=== PATIENT | male | born 1950 | race Caucasian/White ===

== ENCOUNTER 2016-12-21 20:25 | Inpatient (IN) | payer MEDICARE, OTHER ==
[~2016-12-21] VITALS: Ht 188 cm; Wt 72.5 kg
[~2016-12-21 20:25] MED LIST: CYMB60CA PO; FLUC200T2 PO; LEVO.075 PO; NYST100010 SWISH-SWAL; RISP1SOL15 PO; XANA2TAB2 PO
[2016-12-21 20:38] VITALS: BP 147/67; PULSE 100; RESP 18; O2SAT 100; O2SAT 97
[2016-12-21 20:46] VITALS: BP 147/67; PULSE 100; RESP 18; TEMP 98; O2SAT 100
--- NOTE | 2016-12-21 20:47 | PD ---
HPI Chief Complaint: Fall Time Seen by Provider: 20:47 Travel History International Travel<30 days: No Contact w/Intl Traveler<30days: No Traveled to known affect area: No History of Present Illness HPI 66-year-old male with history of dementia arrives to the emergency Department via transfer from [place]. Patient is known to have an oblique fracture to the right hip and upper femur. Patient was accepted by Dr. Hwang the hospitalist, and Dr. Roach the orthopedic on-call. Patient is said to have fallen while transferring to the commode causing a fracture to the right hip. Patient was seen originally at [facility]. Patient states no other injury currently. His pain is 8 out of 10 in the right hip. He has no known drug allergies. PFSH Past Medical History Anxiety: Yes Cancer: No Cardiovascular Problems: No Diabetes: No Genitourinary: No Hepatitis: No Hiatal Hernia: No Hypertension: Yes Musculoskeletal: No Neurologic: No Reproductive: No Respiratory: No Thyroid Disease: Yes Past Surgical History Abdominal Surgery: No Cardiac Surgery: No Ear Surgery: No Endocrine Surgery: No Eye Surgery: No Genitourinary Surgery: No Gynecologic Surgery: No Oral Surgery: No Pacemaker: No Thoracic Surgery: No Other Surgery: Yes Social History Alcohol Use: No Tobacco Use: No Substance Use: Yes (MARIJUANA) Allergies-Medications (Allergen,Severity, Reaction): Coded Allergies: No Known Allergies (Unverified , 12/21/16) Reported Meds & Prescriptions Reported Meds & Active Scripts Active Review of Systems ROS Limitations: Poor Historian, Other: (dementia.) Except as stated in HPI: all other systems reviewed are Neg General / Constitutional: No: Fever Eyes: No: Visual changes HENT: No: Headaches Cardiovascular: No: Chest Pain or Discomfort Respiratory: No: Shortness of Breath Gastrointestinal: No: Abdominal Pain Genitourinary: No: Dysuria Musculoskeletal: No: Pain Skin: No Rash Neurologic: No: Weakness Psychiatric: No: Depression Endocrine: No: Polydipsia Hematologic/Lymphatic: No: Easy Bruising Physical Exam Narrative GENERAL: Patient appears in no acute distress. SKIN: Warm and dry. Normal color. Normal turgor. HEAD: Atraumatic. Normocephalic. EYES: Pupils equal and round. No scleral icterus. No injection or drainage. ENT: No nasal bleeding or discharge. Mucous membranes pink and moist. Pharynx is clear. Airway is patent. NECK: Trachea midline. Supple and nontender. CARDIOVASCULAR: Regular rate and rhythm. RESPIRATORY: No accessory muscle use. Clear to auscultation. Breath sounds equal bilaterally. GASTROINTESTINAL: Abdomen soft, non-tender, nondistended. Hepatic and splenic margins not palpable. MUSCULOSKELETAL: Extremities without clubbing, cyanosis, or edema. No obvious deformities. Patient has external rotation and shortening of the right lower extremity. Patient is able to wiggle his toes on the right foot, and has normal neurovascular exam at this time NEUROLOGICAL: Awake and alert. No obvious cranial nerve deficits. Motor grossly within normal limits. Normal speech. PSYCHIATRIC: Appropriate mood and affect; insight and judgment normal. Data Data Last Documented VS Vital Signs Date Time Temp Pulse Resp B/P Pulse Ox O2 Delivery O2 Flow Rate FiO2 12/21/16 20:46 98.0 100 18 147/67 100 Room Air Orders Femur (Ap & Lat/2vws) (12/21/16 20:53) Hip, Uni(Ap&Lat) Wo Ap Pelvis (12/21/16 20:53) Ice/Cold Pack (12/21/16 20:53) Complete Blood Count With Diff (12/21/16 20:53) Comprehensive Metabolic Panel (12/21/16 20:53) Prothrombin Time / Inr (Pt) (12/21/16 20:53) Act Partial Throm Time (Ptt) (12/21/16 20:53) Iv Access Insert/Monitor (12/21/16 20:53) Ecg Monitoring (12/21/16 20:53) Oximetry (12/21/16 20:53) Sodium Chloride 0.9% Flush (Ns Flush) (12/21/16 21:00) Electrocardiogram (12/21/16 20:53) Chest, Single Ap (12/21/16 20:53) Hydromorphone Pf Inj (Dilaudid Pf Inj) (12/21/16 21:00) Urinary Catheter Insert/Apply (12/21/16 21:02) Admit Order (Ed Use Only) (12/21/16 22:17) Consult Orthopedic (12/21/16 ) Labs Laboratory Tests Test 12/21/16 21:35 White Blood Count 13.7 TH/MM3 Red Blood Count 3.67 MIL/MM3 Hemoglobin 10.3 GM/DL Hematocrit 32.2 % Mean Corpuscular Volume 87.7 FL Mean Corpuscular Hemoglobin 28.0 PG Mean Corpuscular Hemoglobin 32.0 % Concent Red Cell Distribution Width 13.9 % Platelet Count 185 TH/MM3 Mean Platelet Volume 8.0 FL Neutrophils (%) (Auto) 86.4 % Lymphocytes (%) (Auto) 6.1 % Monocytes (%) (Auto) 6.9 % Eosinophils (%) (Auto) 0.0 % Basophils (%) (Auto) 0.6 % Neutrophils # (Auto) 11.8 TH/MM3 Lymphocytes # (Auto) 0.8 TH/MM3 Monocytes # (Auto) 0.9 TH/MM3 Eosinophils # (Auto) 0.0 TH/MM3 Basophils # (Auto) 0.1 TH/MM3 CBC Comment DIFF FINAL Differential Comment MDM Medical Decision Making Medical Screen Exam Complete: Yes Emergency Medical Condition: Yes Medical Record Reviewed: Yes Differential Diagnosis Fall. Right hip fracture with previous hardware in place. Dementia. Narrative Course Patient is medically stable at time of exam. Repeat labs are drawn including CBC, CMP, as well as EKG and chest x-ray. Repeat x-rays of the right hip and femur are ordered. IV is in place and patient is given 1 mg hydromorphone IV. EKG shows sinus tachycardia without significant ST-T changes Call was placed to Dr. Roach, and the patient was discussed. He would like the patient admitted nothing by mouth after midnight. Call was placed to Dr. Cotto, who agreed to admit the patient Diagnosis Primary Impression: Closed fracture of right hip requiring operative repair Qualified Code: S72.001A - Closed fracture of right hip requiring operative repair, initial encounter Additional Impression: Dementia Qualified Code: F03.90 - Dementia without behavioral disturbance, unspecified dementia type Admitting Information Admitting Physician Requests: Observation Scripts Unable to Obtain Active Prescriptions or Reported Meds Condition: Stable Gerardo Huntley December 21, 2016 20:47
[2016-12-21] MEDS ORDERED: SODIUM CHLORIDE 0.9% FLUSH 10 ML FLUSH IV FLUSH PRN ×2 (21:00→23:00)
[2016-12-21] MEDS ORDERED: HYDROmorphone HCL PF 1 MG/ML VIAL IVS ONE (21:00)
--- NOTE | 2016-12-21 21:33 | RADRPT ---
EXAM DATE/TIME: 12/21/2016 21:07 [facility] COMPARISON: CHEST SINGLE AP, April 26, 2016, 4:34. INDICATIONS : Fall, chest pain. MEDICAL HISTORY : None. SURGICAL HISTORY : Right total hip ENCOUNTER: Initial ACUITY: 1 day PAIN SCORE: 2/10 LOCATION: Bilateral chest FINDINGS: A single view of the chest demonstrates the lungs to be symmetrically aerated without evidence of mas s, infiltrate or effusion. The cardiomediastinal contours are unremarkable. Osseous structures are intact. CONCLUSION: No acute disease. Wenceslao Nolasco Jr., MD on December 21, 2016 at 21:31 Board Certified Radiologist. This report was verified electronically.
--- NOTE | 2016-12-21 21:35 | RADRPT ---
EXAM DATE/TIME: 12/21/2016 21:09 [facility] COMPARISON: No previous studies available for comparison. INDICATIONS : Fall, complains of right hip pain. MEDICAL HISTORY : None. SURGICAL HISTORY : Right total hip ENCOUNTER: Initial ACUITY: 1 day PAIN SCORE: 9/10 LOCATION: Right femur FINDINGS: 5 images of the right femur show a right total hip arthroplasty. There is an acute spiral fracture as sociated with the intramedullary component of the arthroplasty. 2 large fragments are seen one of whi ch involves the majority of the lesser catheter and proximal diaphysis while the second involves the greater trochanter and proximal diaphysis. There is some diastases of the fracture fragments measurin g up to 1.5 cm. The femoral head component remains within the acetabular component. Diffuse osteopeni a noted. Osteoarthritis of the knee joint. Soft tissues are unremarkable. CONCLUSION: Acute fracture associated with the intramedullary component of the prosthesis as detailed above. Wenceslao Nolasco Jr., MD on December 21, 2016 at 21:31 Board Certified Radiologist. This report was verified electronically.
--- NOTE | 2016-12-21 21:36 | RADRPT ---
EXAM DATE/TIME: 12/21/2016 21:09 [facility] COMPARISON: No previous studies available for comparison. INDICATIONS : Fall, complains of right hip pain. MEDICAL HISTORY : None. SURGICAL HISTORY : Right total hip ENCOUNTER: Initial ACUITY: 1 day PAIN SCORE: 9/10 LOCATION: Right hip FINDINGS: 3 views of the right hip reveal a total hip arthroplasty. A comminuted spiral-type fracture is seen i nvolving the intramedullary component of the prosthesis. There is up to 1.5 cm of separation of the f racture fragments. The femoral head component remains within the acetabular component. Diffuse osteop enia. CONCLUSION: Acute fracture associated with the intramedullary component of the hip prosthesis as detailed above. Wenceslao Nolasco Jr., MD on December 21, 2016 at 21:33 Board Certified Radiologist. This report was verified electronically.
[2016-12-21 22:09] LABS: AUTOMATED NEUTROPHIL # 11.8 TH/MM3 (1.8-7.7); BASOPHIL # 0.1 TH/MM3 (0-0.2); BASOPHIL % 0.6 % (0.0-2.0); HEMATOCRIT 32.2 % (39.0-51.0); HEMO FLAGS DIFF FINAL; LYMPH % 6.1 % (9.0-44.0); LYMPHOCYTE # 0.8 TH/MM3 (1.0-4.8); MEAN CELL VOLUME 87.7 FL (80.0-100.0); MONO % 6.9 % (0.0-8.0); NEUT % 86.4 % (16.0-70.0); PLATELET COUNT 185 TH/MM3 (150-450); RED BLOOD COUNT 3.67 MIL/MM3 (4.50-5.90); RED CELL DISTRIBUTION WIDTH 13.9 % (11.6-17.2); WHITE BLOOD COUNT 13.7 TH/MM3 (4.0-11.0)
[2016-12-21 22:24] LABS: ANION GAP 10 MEQ/L (5-15); AST (GOT) 12 U/L (15-37); BICARBONATE 24.8 MEQ/L (21.0-32.0); BLOOD UREA NITROGEN 13 MG/DL (7-18); CHLORIDE 104 MEQ/L (98-107); GLOMERULAR FILTRATION RATE 146 ML/MIN (>89); POTASSIUM 3.7 MEQ/L (3.5-5.1); SODIUM (NA) 139 MEQ/L (136-145)
[2016-12-21 22:25] LABS: ALT (GPT) 15 U/L (12-78)
[2016-12-21 22:27] LABS: ALKALINE PHOSPHATASE 58 U/L (45-117); TOTAL BILIRUBIN ADULT 0.7 MG/DL (0.2-1.0)
[2016-12-21 22:28] LABS: APTT (PATIENT) 26.3 SEC (24.3-30.1); PROTHROMBIN TIME - PATIENT 10.7 SEC (9.8-11.6)
[2016-12-21] MEDS ORDERED: NALOXONE HCL 0.4 MG/ML AMP IV PRN (23:00)
[2016-12-21] MEDS ORDERED: HYDROmorphone HCL PF 1 MG/ML VIAL IV PUSH PRN (23:00)
[2016-12-21 23:19] VITALS: BP 154/64; PULSE 102; RESP 18; O2SAT 99
[2016-12-22 00:50] VITALS: PULSE 112; O2SAT 100
[2016-12-22] MEDS ORDERED: POVIDONE IODINE 5% (ANTISEPSIS KIT) 4 APPLICATIONS EACH NARE PRN (01:00)
[2016-12-22] MEDS ORDERED: CHLORHEXIDINE GLUCONATE 2 % 1 PACK (2 CLOTHS) TOPICAL PRN (01:00)
[2016-12-22] MEDS ORDERED: LACTATED RINGER'S 1000 ML IV PRN (01:00)
[2016-12-22] MEDS ORDERED: METOPROLOL TARTRATE 25 MG TAB PO PRN (01:00)
[2016-12-22] MEDS ORDERED: SODIUM CHLORID 0.9% 500 ML IV PRN (01:00)
[2016-12-22] MEDS ORDERED: INSULIN HUMAN REGULAR 1,000 UNITS/10 ML VIAL SQ PRN (01:00)
[2016-12-22] MEDS ORDERED: HYDROmorphone HCL PF 1 MG/ML VIAL IV PUSH PRN (02:00)
--- NOTE | 2016-12-22 02:03 | HHI.HP ---
[facility] Unknown Admission Diagnosis Right hip Fracture Diagnoses: Travel History International Travel<30 Days: No Contact w/Intl Traveler <30 Da: No Traveled to Known Affected Are: No History of Present Illness History from transfer notes from [facility]. Patient was transferred from [facility] last night for orthopedics evaluation and repair of his right hip fracture. Patient had an unwitnessed fall on December 21, 2016. It was thought to be a trip and fall at home. Apart from the above, history is quite limited because patient has baseline dementia and the notes from [facility] only mentioned that patient had a fall. No further collateral information is available at this time regarding the circumstances of his fall. Further imaging studies done at [facility] reveals obliquely oriented fracture of the proximal shaft of the right femur with minimal angulation and destruction of fracture fragments extending around the stem of the right hip hemiarthroplasty. Patient's CT imaging of the head revealed no acute abnormalities. However does have significant substance loss which is greater than expected of his age. Left sphenoid sinusitis and right mid ethmoid air cell opacification. His lab work done there reviewed. At the time of my exam, patient is quite agitated and is severely in pain. He was initially doing well in the emergency room and upon initial arrival to medical floor. However as he moved to the bed, he suffered from severe pain and subsequently he was quite agitated and screaming and yelling out trying to pull his Hernandez catheter. Upon further questioning of his medical conditions, he pretty much answered yes to all the questioning. Review of Systems ROS Limitations: Altered Mental Status, Poor Historian (poor historian, dementia, not able to provide ros at all) Past Family Social History Past Medical History Per EMR: Anxiety History of polysubstance abuse previouslywith marijuana, oxycodone, Xanax Hypertension Hypothyroidism Normocytic anemia History of oral thrush Past Surgical History Right total hip arthroplasty History of fractured right knee Allergies: Coded Allergies: No Known Allergies (Unverified , 12/21/16) Family History Unknown. Patient is not able to provide. Social History Marijuana use per previous history. Denies any IV drug abuse or alcohol abuse previously. Physical Exam Vital Signs Vital Signs Date Time Temp Pulse Resp B/P Pulse Ox O2 Delivery O2 Flow Rate FiO2 12/21/16 23:19 102 18 154/64 99 Room Air 12/21/16 20:46 98.0 100 18 147/67 100 Room Air 12/21/16 20:38 18 97 Room Air 12/21/16 20:38 100 18 147/67 100 Physical Exam GENERAL: This is a gentleman, in acute distress from pain and anxiety SKIN: No rashes, ecchymoses or lesions. Cool and dry. HEAD: Atraumatic. Normocephalic. No temporal or scalp tenderness. EYES:No scleral icterus. No injection or drainage. ENT: Nose without bleeding, purulent drainage or septal hematoma. Airway patent. NECK: Trachea midline. No JVD. Supple, nontender, no meningeal signs. CARDIOVASCULAR: Tachycardic due to pain and anxiety. No murmur appreciated. RESPIRATORY: Clear to auscultation. Breath sounds equal bilaterally. No wheezes , rales, or rhonchi. GASTROINTESTINAL: Abdomen soft, non-tender, nondistended. No guarding. : External female genitalia. Hernandez catheter in place. MUSCULOSKELETAL: Extremities without clubbing, cyanosis, or edema. No calf tenderness right hip internally rotated and shorter than the left. Severe Pain at the right hip. NEUROLOGICAL: Awake and alert. Normal speech. Laboratory Laboratory Tests Test 12/21/16 21:35 White Blood Count 13.7 Red Blood Count 3.67 Hemoglobin 10.3 Hematocrit 32.2 Mean Corpuscular Volume 87.7 Mean Corpuscular Hemoglobin 28.0 Mean Corpuscular Hemoglobin 32.0 Concent Red Cell Distribution Width 13.9 Platelet Count 185 Mean Platelet Volume 8.0 Neutrophils (%) (Auto) 86.4 Lymphocytes (%) (Auto) 6.1 Monocytes (%) (Auto) 6.9 Eosinophils (%) (Auto) 0.0 Basophils (%) (Auto) 0.6 Neutrophils # (Auto) 11.8 Lymphocytes # (Auto) 0.8 Monocytes # (Auto) 0.9 Eosinophils # (Auto) 0.0 Basophils # (Auto) 0.1 CBC Comment DIFF FINAL Differential Comment Prothrombin Time 10.7 Prothromb Time International 1.0 Ratio Activated Partial 26.3 Thromboplast Time Sodium Level 139 Potassium Level 3.7 Chloride Level 104 Carbon Dioxide Level 24.8 Anion Gap 10 Blood Urea Nitrogen 13 Creatinine 0.56 Estimat Glomerular Filtration 146 Rate Random Glucose 99 Calcium Level 8.0 Total Bilirubin 0.7 Aspartate Amino Transf 12 (AST/SGOT) Alanine Aminotransferase 15 (ALT/SGPT) Alkaline Phosphatase 58 Total Protein 6.3 Albumin 3.3 Result Diagram: 12/21/16213412/21/162134 Imaging Last 48 hours Impressions Hip X-Ray 12/21/162052 Signed Impressions: Service Date/Time: Wednesday, December 21, 2016 21:09 - CONCLUSION: Acute fracture associated with the intramedullary component of the hip prosthesis as detailed above. Wenceslao Nolasco Jr., MD Femur X-Ray 12/21/162052 Signed Impressions: Service Date/Time: Wednesday, December 21, 2016 21:09 - CONCLUSION: Acute fracture associated with the intramedullary component of the prosthesis as detailed above. Wenceslao Nolasco Jr., MD Chest X-Ray 12/21/162052 Signed Impressions: Service Date/Time: Wednesday, December 21, 2016 21:07 - CONCLUSION: No acute disease. Wenceslao Nolasco Jr., MD Assessment and Plan Problem List: (1) Closed fracture of right hip requiring operative repair ICD Code: S72.001A Status: Acute (2) Dementia ICD Code: F03.90 Status: Acute Assessment and Plan Impression: Status post fall Right hip fracture associated with intramedullary component of prosthesis Plan: Patient's case was discussed with orthopedics Dr. Roach by [facility] ER staff. Planned for OR in a.m. Nothing by mouth. Pain control. We will increase Dilaudid to 1 mg IV every 2 hours when necessary. If The patient is still quite agitated despite adequate pain control, will then consider using anxiety medicines. Obtain med reconciliation from pharmacy or family members. DVT prophylaxisto start postoperatively. GI prophylaxison pantoprazole. Discussed Condition With patient, nursing staff, ER PA Physician Certification 2 Midnight Certification Type: Admission for Inpatient Services Order for Inpatient Services The services are ordered in accordance with Medicare regulations or non- Medicare payer requirements, as applicable. In the case of services not specified as inpatient-only, they are appropriately provided as inpatient services in accordance with the 2-midnight benchmark. Estimated LOS (days): 3 days is the estimated time the patient will need to remain in the hospital, assuming treatment plan goals are met and no additional complications. Post-Hospital Plan: Home Problem Qualifiers (1) Closed fracture of right hip requiring operative repair: Qualified Code: S72.001A - Closed fracture of right hip requiring operative repair, initial encounter (2) Dementia: Qualified Code: F03.90 - Dementia without behavioral disturbance, unspecified dementia type Shashi Cotto MD December 22, 2016 02:03
[2016-12-22 04:10] VITALS: BP 114/58; PULSE 101; RESP 17; TEMP 96.4; O2SAT 98
[2016-12-22 04:10] LABS: AUTOMATED NEUTROPHIL # 14.9 TH/MM3 (1.8-7.7); BASOPHIL # 0.1 TH/MM3 (0-0.2); BASOPHIL % 0.4 % (0.0-2.0); EOSINOPHIL % 0.1 % (0.0-4.0); HEMATOCRIT 31.2 % (39.0-51.0); HEMO FLAGS DIFF FINAL; LYMPH % 6.5 % (9.0-44.0); LYMPHOCYTE # 1.1 TH/MM3 (1.0-4.8); MEAN CELL VOLUME 88.1 FL (80.0-100.0); MEAN CORPUSCULAR HEMOGLOBIN 28.5 PG (27.0-34.0); MEAN CORPUSCULAR HGB CONC 32.3 % (32.0-36.0); MONO % 7.2 % (0.0-8.0); NEUT % 85.8 % (16.0-70.0); PLATELET COUNT 194 TH/MM3 (150-450); RED BLOOD COUNT 3.54 MIL/MM3 (4.50-5.90); RED CELL DISTRIBUTION WIDTH 13.8 % (11.6-17.2); WHITE BLOOD COUNT 17.4 TH/MM3 (4.0-11.0)
[2016-12-22 04:15] LABS: PROTHROMBIN TIME - PATIENT 10.7 SEC (9.8-11.6)
[2016-12-22 04:31] LABS: BICARBONATE 26.7 MEQ/L (21.0-32.0); POTASSIUM 4.4 MEQ/L (3.5-5.1)
--- NOTE | 2016-12-22 06:54 | PD.ORT.PN ---
Subjective Subjective Remarks s/p fall with right hip pain demented. cannot give history Objective Vitals Vital Signs Date Time Temp Pulse Resp B/P Pulse Ox O2 Delivery O2 Flow Rate FiO2 12/22/16 04:10 96.4 101 17 114/58 98 12/22/16 00:50 112 100 12/21/16 23:19 102 18 154/64 99 Room Air 12/21/16 20:46 98.0 100 18 147/67 100 Room Air 12/21/16 20:38 18 97 Room Air 12/21/16 20:38 100 18 147/67 100 Result Diagram: 12/22/16 0350 12/22/16 0350 Other Results Laboratory Tests Test 12/21/16 12/22/16 21:35 03:50 Prothrombin Time 10.7 SEC 10.7 SEC (9.8-11.6) (9.8-11.6) Prothromb Time International 1.0 RATIO 1.0 RATIO Ratio Imaging Last 24 hours Impressions Hip X-Ray 12/21/162052 Signed Impressions: Service Date/Time: Wednesday, December 21, 2016 21:09 - CONCLUSION: Acute fracture associated with the intramedullary component of the hip prosthesis as detailed above. Wenceslao Nolasco Jr., MD Femur X-Ray 12/21/162052 Signed Impressions: Service Date/Time: Wednesday, December 21, 2016 21:09 - CONCLUSION: Acute fracture associated with the intramedullary component of the prosthesis as detailed above. Wenceslao Nolasco Jr., MD Chest X-Ray 12/21/162052 Signed Impressions: Service Date/Time: Wednesday, December 21, 2016 21:07 - CONCLUSION: No acute disease. Wenceslao Nolasco Jr., MD Objective Remarks RLE: externally rotated. good cap refill Assessment & Plan Assessment and Plan 1) Right Periprosthetic Proximal Femur Fx with possible Hemiarthroplasty loosening -consents -npo -surgeyr today Lalit Sigala December 22, 2016 06:54
[2016-12-22] MEDS ORDERED: HYDR-3580 PO (07:03)
[2016-12-22] MEDS ORDERED: ERGO1CAP30 PO (07:03)
[2016-12-22] MEDS ORDERED: CALCTAB19 PO (07:03)
[2016-12-22] MEDS ORDERED: XARE10TA PO (07:03)
[2016-12-22] MEDS ORDERED: WHEEMIS3 (07:03)
[2016-12-22] MEDS ORDERED: VITA2000 PO (07:03)
[2016-12-22] MEDS ORDERED: WALKER/ADULT/FO1 MIS (07:03)
[2016-12-22 07:43] VITALS: BP 103/52; PULSE 96; RESP 18; TEMP 96.3; O2SAT 96
[2016-12-22] MEDS ORDERED: VANCOMYCIN HCL 1000 MG VIAL ONE (08:10)
[2016-12-22] MEDS ORDERED: GENTAMICIN SULFATE 80 MG/2 ML VIAL ONE (08:11)
[2016-12-22] MEDS ORDERED: ceFAZolin 2 GM PREMIX 50 ML ONE (08:11)
[2016-12-22] MEDS ORDERED: SODIUM CHLOR 0.9% 250 ML INJ 250 ML ONE (08:11)
[2016-12-22] MEDS ORDERED: TRANEXAMIC ACID INJ 1,000 MG in SODIUM CHLORIDE 0.9% INJ 100 ML IV SCH (08:30)
[2016-12-22] MEDS ORDERED: SODIUM CHLORIDE 0.9% FLUSH 10 ML FLUSH IV FLUSH SCH (09:00)
[2016-12-22] MEDS ORDERED: DEXMEDETOMIDINE HCL 200 MCG/2 ML VIAL ONE ×2 (09:07→10:00)
--- NOTE | 2016-12-22 09:15 | EKG ---
Date Performed: 12/21/2016 Time Performed: 20:53:07 PTAGE: 66 years EKG: SINUS TACHYCARDIA LEFT ANTERIOR FASCICULAR BLOCK NONSPECIFIC T-WAVE ABNORMALITY ABNORMAL EC G PREVIOUS TRACING : 04/25/2016 00.45 DOCTOR: Addy Brito Interpretating Date/Time 12/22/2016 09:13:05
--- NOTE | 2016-12-22 09:18 | HHI.PR ---
Subjective Remarks Follow-up for fall and dementia Patient able to give me his first and last name. He is a very poor historian due to dementia. Otherwise he is able to have a conversation but does not make sense. He does follow commands during examination. He denies any pain. d/w charge nurse and she stated he has been stable with no issues. Unable to reach any family members in regards to surgery for ORIF. Per nurse Mary Dr. Kaba stated surgery is necessary and asked for consent. Sitter is at the bedside and he stated no issues. He stated that sometimes patient does try to get her bed. When I asked patient to stay in bed, he did as requested. Objective Vitals Vital Signs Date Time Temp Pulse Resp B/P Pulse Ox O2 Delivery O2 Flow Rate FiO2 12/22/16 07:43 96.3 96 18 103/52 96 12/22/16 04:10 96.4 101 17 114/58 98 12/22/16 00:50 112 100 12/21/16 23:19 102 18 154/64 99 Room Air 12/21/16 20:46 98.0 100 18 147/67 100 Room Air 12/21/16 20:38 18 97 Room Air 12/21/16 20:38 100 18 147/67 100 I/O 12/21/16 12/21/16 12/21/16 12/22/16 12/22/16 12/22/16 07:00 15:00 23:00 07:00 15:00 23:00 Intake Total 0 ml Output Total 550 ml Balance -550 ml Intake Oral 0 ml Output Urine Total 550 ml # Bowel Movements 0 Result Diagram: 12/22/16 0350 12/22/16 0350 Objective Remarks GENERAL:a thin Male in NAD but is a little agitated and wants to get up. SKIN: Warm and dry. HEAD: Normocephalic. EYES: No scleral icterus. No injection or drainage. NECK: Supple, trachea midline. No JVD or lymphadenopathy. CARDIOVASCULAR: Regular rate and rhythm without murmurs, gallops, or rubs. RESPIRATORY: Breath sounds equal bilaterally. No accessory muscle use. GASTROINTESTINAL: Abdomen soft, non-tender, nondistended. MUSCULOSKELETAL: No cyanosis, or edema. BACK: Nontender without obvious deformity. No CVA tenderness. NEURO: AAO X 1 (names first and last name.) Sensation and motor grossly intact. CN 2-12 intact. Medications and IVs Current Medications Sodium Chloride (NS Flush) 2 ml UNSCH PRN IV FLUSH FLUSH AFTER USING IV ACCESS ; Start 12/21/16 at 21:00; Stop 12/21/16 at 22:52; Status DC Hydromorphone HCl (Dilaudid Pf Inj) 1 mg ONCE ONCE IVS Last administered on 23:14; Start 12/21/16 at 21:00; Stop 12/21/16 at 21:01; Status DC Sodium Chloride (NS Flush) 2 ml UNSCH PRN IV FLUSH FLUSH AFTER USING IV ACCESS Last administered on 12/22/16 02:15; Start 12/21/16 at 23:00 Sodium Chloride (NS Flush) 2 ml BID IV FLUSH ; Start 12/22/16 at 09:00 Naloxone HCl (Narcan Inj) 0.4 mg UNSCH PRN IV SEE LABEL COMMENTS; Start at 23:00 Hydromorphone HCl 0.5 mg 0.5 mg Q4H PRN IV PUSH pain >5; Start 12/21/16 at 23: 00; Stop 12/22/16 at 01:51; Status DC Lactated Ringer's 1,000 ml @ 30 mls/hr Q24H PRN IV SEE LABEL COMMENTS Last administered on 12/22/16 05:04; Start 12/22/16 at 01:00; Stop 12/25/16 at 00:59 Sodium Chloride (NS 500 ml Inj) 500 ml @ 30 mls/hr [id number] PRN IV SEE LABEL COMMENTS; Start 12/22/16 at 01:00; Stop 12/25/16 at 00:59 Metoprolol Tartrate (Lopressor) 25 mg TAXI DRIVER SUPERVISOR PRN PO SEE LABEL COMMENTS; Start 12/22/16 at 01:00; Stop 12/25/16 at 00:59 Povidone Iodine (Betadine 5% Antisepsis Kit) 1 applic TAXI DRIVER SUPERVISOR PRN EACH NARE SEE LABEL COMMENTS; Start 12/22/16 at 01:00; Stop 12/25/16 at 00:59 Chlorhexidine Gluconate (Chlorhexidine 2% Cloth) 3 pack TAXI DRIVER SUPERVISOR PRN TOPICAL SEE LABEL COMMENTS; Start 12/22/16 at 01:00; Stop 12/25/16 at 00:59 Insulin Human Regular (NovoLIN R INJ) See Protocol Table ... TAXI DRIVER SUPERVISOR PRN SQ SEE PROTOCOL TABLE; Start 12/22/16 at 01:00; Stop 12/25/16 at 00:59 Hydromorphone HCl (Dilaudid Pf Inj) 1 mg Q2HR PRN IV PUSH pain >5 Last administered on 12/22/16t 02:02; Start 12/22/16 at 02:00 Vancomycin HCl (Vancomycin Inj) 1,000 mg STK-MED ONCE .ROUTE ; Start 12/22/16 at 08:10; Stop 12/22/16 at 08:11; Status DC Gentamicin Sulfate 240 mg 240 mg STK-MED ONCE .ROUTE ; Start 12/22/16 at 08:11; Stop 12/22/16 at 08:12; Status DC Sodium Chloride 250 ml @ As Directed STK-MED ONCE .ROUTE ; Start 12/22/16 at 08 :11; Stop 12/22/16 at 08:12; Status DC Cefazolin Sodium/ Dextrose 50 ml @ As Directed STK-MED ONCE .ROUTE ; Start 12/22 at 08:11; Stop 12/22/16 at 08:12; Status DC Tranexamic Acid/ Sodium Chloride (Cyklokapron Inj/ NS Inj) 110 ml @ 200 mls/hr UNSCH IV ; Start 12/22/16 at 08:30; Stop 12/22/16 at 14:30 Dexmedetomidine HCl (Precedex Inj) 200 mcg STK-MED ONCE .ROUTE ; Start 12/22/16 at 09:07; Stop 12/22/16 at 09:08; Status DC A/P Problem List: (1) Closed fracture of right hip requiring operative repair ICD Code: S72.001A Status: Acute (2) Dementia ICD Code: F03.90 Status: Acute Assessment and Plan Right hip fracture associated with intramedullary component of prosthesis -Status post fall unwitnessed fall. -Patient is scheduled for ORIF today by orthopedics. Patient has severe dementia and unable to contact any family members. Surgery indicated. Consent signed. -EKG reviewed and chest x-ray reviewed. Based on clinical exam and ancillary testing patient is medically cleared for surgery. -Due to severe dementia and patient being opioid rick will DC Dilaudid and give morphine. Once patient has surgery will need to transition to oral medication. Leukocytosis -May be reactive due to injury. -Chest x-ray negative and no fevers. No skin rash noted. Will get an urinalysis. -Continue to monitor. -If UA is positive will treat empirically for UTI pending urine cultures. DVT prophylaxisto start postoperatively. Discharge Planning Patient is scheduled for surgery today. Patient will need SNF placement after surgery. Problem Qualifiers (1) Closed fracture of right hip requiring operative repair: Qualified Code: S72.001A - Closed fracture of right hip requiring operative repair, initial encounter (2) Dementia: Qualified Code: F03.90 - Dementia without behavioral disturbance, unspecified dementia type Jovita Lawrence MD December 22, 2016 09:18
[2016-12-22] MEDS ORDERED: MORPHINE SULFATE 4 MG/ML INJ IV PUSH PRN ×2 (09:30→11:30)
--- NOTE | 2016-12-22 09:36 | MB ---
cc: HAILEY JOHNSTON DATE OF CONSULTATION 12/22/2016 DATE OF ADMISSION 12/21/2016 REASON FOR CONSULTATION Right proximal femur periprosthetic fracture. CONSULTING PHYSICIAN Dr. Cotto QUINN Baldwin is a 66-year-old who has a history of previous right hip hemiarthroplasty. He had an unwitnessed fall on December 21, 2016. The patient was reportedly found by his neighbors. He was taken to [facility]. X-rays revealed a displaced right proximal femur fracture. The patient has significant effusion and is unable to give any significant history at this time. He complains of right hip pain. Pain is worse with movement. It is unclear if he had any dizziness, syncope or loss of consciousness. PAST MEDICAL HISTORY ILLNESSES 1. Anxiety 2. Hypertension 3. Anemia 4. History of substance abuse. SURGERIES Right hip hemiarthroplasty ALLERGIES NO KNOWN DRUG ALLERGIES. FAMILY HISTORY Unobtainable SOCIAL HISTORY The patient has a history of use of marijuana. Social history is otherwise unobtainable. REVIEW OF SYSTEMS Unobtainable PHYSICAL EXAMINATION The patient is a thin 66-year-old in no acute distress. He is awake, but confused. He does not answer questions appropriately. VITAL SIGNS: Temperature 96.3, pulse 96, respirations 18, blood pressure 103/52, O2 sat 96% on room air. HEAD: The patient is normocephalic. EYES: Pupils are equal. NECK: Soft and nontender. Trachea is midline. ABDOMEN: Soft, nontender, nondistended. EXTREMITIES: Examination of bilateral upper extremities reveals no pain with shoulder, elbow or wrist motion. He has good cap refill in his fingers. Radial pulses are palpable. Skin is intact. Examination of the left leg reveals no obvious pain or deformity with hip, knee or ankle motion. Skin is intact. Dorsalis pedis pulse is palpable. Examination of the right leg reveals pain with any attempted hip motion. He has minimal tenderness around his knee, tibia or ankle. Thigh and calf compartments are soft. Dorsalis pedis pulses palpable. Sensation is intact in both feet. X-RAYS X-rays of right hip were reviewed. The patient has a displaced right hip periprosthetic fracture. The prosthesis appears to be loose. IMPRESSION Displaced right proximal femur periprosthetic fracture with probable loose prosthesis. PLAN At this point, the patient will need open reduction internal fixation of his right proximal femur. He will likely need revision of right hip hemiarthroplasty. The risks of surgery include bleeding, infection, injury to arteries, nerves and blood vessels, nonunion, malunion, painful hardware, as well as medical complications including blood clot, stroke, heart attack and . All questions were answered. I will attempt to contact family for consents. A mid-level provider in my office, nurse practitioner or PA, may see this patient on a follow-up basis and continue to implement the objective of this plan including: Starting or adjusting medications, injections of muscle, tendon, bursa or joints, cast application, orthotic or brace application, physical therapy, further radiographic studies including x-ray, MRI, CT, ultrasounds or bone scan, vascular studies, neurologic studies, or other specialist consultations, and proceeding with surgical management as appropriate. MD PUMA Rose/RAMIREZ /9:22 AM /9:32 AM
[2016-12-22] MEDS ORDERED: ONDANSETRON HCL 4 MG/2 ML VIAL IVP PRN (11:30)
[2016-12-22] MEDS ORDERED: Post-op Orders (for Pharmacy) MISC XX ONE (11:30)
[2016-12-22] MEDS ORDERED: SODIUM CHLORIDE 0.9% FLUSH 5 ML FLUSH IVF PRN (11:30)
[2016-12-22] MEDS ORDERED: diphenhydrAMINE HCL 25 MG CAP PO PRN (11:30)
[2016-12-22] MEDS ORDERED: NALOXONE HCL 0.4 MG/ML AMP IV PRN (11:30)
[2016-12-22] MEDS ORDERED: PROPOFOL 200 MG/20 ML AMP IV ONE (12:00)
[2016-12-22] MEDS ORDERED: SODIUM CHLORID 0.9% 500 ML INJ 500 ML IV ONE (12:00)
[2016-12-22] MEDS ORDERED: ePHEDrine/NS 25 MG/5 ML SYR IV ONE (12:00)
[2016-12-22] MEDS ORDERED: PHENYLEPH/NS 1000 MCG/10 ML SYR IV ONE (12:00)
[2016-12-22] MEDS ORDERED: LACTATED RINGER'S 1000 ML INJ 2,000 ML IV ONE (12:00)
[2016-12-22] MEDS ORDERED: DO NOT ADM ANY ANTICOAGULANT DRUGS PRN (12:03)
[2016-12-22] MEDS ORDERED: *MEPERIDINE 25 MG INJ VIAL PERIprocedural Use ONLY ONE (12:05)
--- NOTE | 2016-12-22 12:22 | MP ---
cc: RYAN JOHNSTON DATE OF SURGERY: 12/22/2016 PREOPERATIVE DIAGNOSIS 1. Comminuted right proximal femur fracture. 2. Loose right hip hemiarthroplasty prosthesis. POSTOPERATIVE DIAGNOSIS 1. Comminuted right proximal femur fracture. 2. Loose right hip hemiarthroplasty prosthesis. SURGEON Ryan Johnston MD ASSISTANTS Capo Rouse PA-C, and Lalit Sigala PA-C The surgical procedure was assisted by my physician personal care assistant. My P.A. presence was necessary throughout this case for the manipulation and positioning of the surgical extremity. My P.A. was assisting me throughout the duration of this procedure. The skill set of a physician personal care assistant was medically necessary to complete this procedure. During the surgical case the surgical dressing maker was working at the back table and the physician personal care assistant was directly assisting me. PROCEDURE 1. Open reduction, internal fixation of comminuted right proximal femur fracture. 2. Revision of right hip femoral stem. ESTIMATED BLOOD LOSS 800 cc. PLAN OF ACTIVITY Toe-touch weightbearing x3 weeks followed by 50% weightbearing x3 weeks. ANESTHESIA Spinal. DRAINS 7 mm ELAINE drain. IMPLANTS USED DePuy Clipyoolaim 19 mm x 240 mm distal stem with size 20 mm x 95 mm proximal body, size 28 mm +5 femoral head, 50 mm bipolar head. DETAILS OF PROCEDURE Denny is a 66-year-old male who has had a previous right hip hemiarthroplasty. He had an unwitnessed fall resulting in comminuted fracture of the proximal femur with resulting loosening of the stem. The patient was seen and evaluated preoperatively. He was brought to the operating room and placed on the OR table. He was given IV sedation and general anesthesia. He was placed in the lateral decubitus position. The right leg and hip were prepped with alcohol followed by Hibiclens and draped in the usual sterile fashion. A timeout procedure was performed. He received IV antibiotics prior to this procedure. The procedure began with a 12-inch incision over the lateral thigh and hip. The subcutaneous tissue was dissected with Bovie. Proximally the same scar was utilized from previous surgery. The iliotibial band was split in line with fibers. The vastus lateralis was now elevated anteriorly. The fracture was now visualized. At this point attention was turned to open reduction, internal fixation of the fracture. There was significant shortening of the fracture. The femur was in approximately five segments. The distal fracture was reduced first. Traction was applied. Fracture was manipulated. Fracture keyed into anatomic alignment. Fracture tenaculums were used to hold provisional fixation. A Synthes cable was now placed around the fracture. The cable was tensioned appropriately. The cable was now crimped and cut. The proximal fractures were reduced next. Each fracture keyed into excellent. Multiple Synthes cables were now placed around the femur. Care was taken to avoid injury to neurovascular structures. Each of the cables was now tensioned appropriately and tightened. The cables were crimped and cut. An additional cable was placed just distal to the fracture to help prevent propagation of any fractures into the distal segment of the femur. Fluoroscopy confirmed excellent alignment of fracture with well-placed cables. Next, attention was turned to revision of the stem. The femoral stem was completely loose. The femoral stem was removed from the proximal femur. The stem was removed relatively easily. At this point attention was turned to preparation of the femur for a stem. The femur was reamed distally. Using a trial template it was decided to use a 240 mm distal stem to bypass the distal fracture. The distal segment was reamed up to size 19. This was found to be an excellent fit. The reamer was placed to a level to reach a 95 mm proximal body. At this point the size 19 x 240 mm distal stem was opened. The proximal edge of the femur was opened for the above stem using the appropriate rasp. With the bow anterior, the distal stem was now impacted to the appropriate level. At this point a trial proximal 95 mm body was placed. Leg lengths appeared to be appropriate and equal. Trial head and neck were placed and the hip was reduced. This was found to be excellent fit. The trial body was removed. Next, the proximal segment was reamed up to size 20. A 20 mm x 95 mm proximal segment was opened. The proximal segment was now impacted onto the distal stem. Using the impaction wrench the proximal and distal segments were compressed together. An additional bolt was placed for additional compression. At this point the trial head and neck were again placed. A +5 neck length was utilized. The hip was reduced. The patient had excellent range of motion and good stability. Trial head and neck were removed. A size 50 bipolar head with +5 neck were opened. The two heads were assembled. The heads were impacted onto the stem. The hip was again reduced. Final fluoroscopy revealed well-placed hardware. Clinically, the leg lengths appeared to be equal with good rotational stability. The wound was thoroughly irrigated. A drain was placed deep. The capsule, piriformis and iliotibial band were closed with #1 Vicryl. The subcutaneous tissue was closed with 3-0 Vicryl. Skin was closed with colin and Dermabond. Sterile dressings were applied. The patient was transferred to Recovery in stable condition. MD PUMA Rose/MELIA /11:33 AM /12:08 PM
--- NOTE | 2016-12-22 12:50 | RADRPT ---
EXAM DATE/TIME: 12/22/2016 00:00 [facility] COMPARISON: No previous studies available for comparison. INDICATIONS : Right total hip revision. MEDICAL HISTORY : None. SURGICAL HISTORY : Previous right total hip. ENCOUNTER: Subsequent ACUITY: 2 days PAIN SCORE: Non-responsive. LOCATION: Right hip. FINDINGS: 4 images from the OR have been submitted. There is a prosthesis in place. The acetabular and femoral components appear well-placed. The femoral component has a very long stem extending into the mid to d istal femur. 5 cerclage wires are seen at the proximal and mid femur. CONCLUSION: Successful placement of a right hip prosthesis with a long femoral stem. Jack Badillo MD on December 22, 2016 at 12:47 Board Certified Radiologist. This report was verified electronically.
--- NOTE | 2016-12-22 13:50 | RADRPT ---
EXAM DATE/TIME: 12/22/2016 12:24 [facility] COMPARISON: No previous studies available for comparison. INDICATIONS : Post op total right hip. MEDICAL HISTORY : None. SURGICAL HISTORY : None. ENCOUNTER: Initial ACUITY: 1 day PAIN SCORE: 0/10 LOCATION: Right Hip. FINDINGS: 4 views of the right hip and pelvis. Right hip hemiarthroplasty noted. Prosthesis intact. Alignment w ithin normal limits. No evidence of fracture. Longstem femoral component with multiple cerclage wires . Lateral cutaneous colin.CONCLUSION: Postoperative appearance of right hip prosthesis. Nehemias Powers MD on December 22, 2016 at 13:45 Board Certified Radiologist. This report was verified electronically.
[2016-12-22 16:00] VITALS: BP 118/56; PULSE 98; RESP 18; TEMP 99; O2SAT 99
[2016-12-22] MEDS: ACETAMINOPHEN/HYDROcodone 325 MG/10 MG TAB PO PRN ×2 (16:50→20:24)
[2016-12-22] MEDS: ceFAZolin 2 GM PREMIX 50 ML IV SCH ×2 (16:51→21:51)
[2016-12-22] MEDS: SODIUM CHLORIDE 0.9% FLUSH 5 ML FLUSH IVF SCH (20:27)
[2016-12-22 21:00] VITALS: BP 104/54; PULSE 104; RESP 17; TEMP 98; O2SAT 97
[2016-12-22] MEDS: VANCOMYCIN INJ 1,000 MG in SODIUM CHLOR 0.9% 250 ML INJ 250 ML IV SCH (21:51)
[2016-12-23] VITALS (13 sets, daily range): BP systolic 87–101; BP diastolic 42–66; PULSE 86–103; RESP 17–22; TEMP 96–100; O2SAT 92–98
[2016-12-23] MEDS: ENOXAPARIN SODIUM 30 MG/0.3 ML SYRINGE SQ SCH (00:08)
[2016-12-23] MEDS: ACETAMINOPHEN/HYDROcodone 325 MG/10 MG TAB PO PRN ×4 (01:14→13:12)
[2016-12-23] MEDS: ceFAZolin 2 GM PREMIX 50 ML IV SCH ×4 (03:50→21:34)
[2016-12-23 05:12] LABS: HEMATOCRIT 21.4 % (39.0-51.0); MEAN CELL VOLUME 86.2 FL (80.0-100.0); MEAN CORPUSCULAR HEMOGLOBIN 29.7 PG (27.0-34.0); MEAN CORPUSCULAR HGB CONC 34.5 % (32.0-36.0); PLATELET COUNT 158 TH/MM3 (150-450); RED BLOOD COUNT 2.48 MIL/MM3 (4.50-5.90); RED CELL DISTRIBUTION WIDTH 13.6 % (11.6-17.2); REVIEW FLAG FINAL; WHITE BLOOD COUNT 20.9 TH/MM3 (4.0-11.0)
[2016-12-23 05:33] LABS: BICARBONATE 24.6 MEQ/L (21.0-32.0); POTASSIUM 3.6 MEQ/L (3.5-5.1)
[2016-12-23] MEDS: SODIUM CHLORIDE 0.9% FLUSH 5 ML FLUSH IVF SCH ×2 (09:00→19:49)
--- NOTE | 2016-12-23 09:52 | PD.ORT.PN ---
Subjective Subjective Remarks Pain controlled. Less confusion today Objective Vitals Vital Signs Date Time Temp Pulse Resp B/P Pulse Ox O2 Delivery O2 Flow Rate FiO2 12/23/16 08:58 96 21 12/23/16 07:38 98.0 103 18 100/52 96 12/23/16 04:55 99.1 101 18 93/49 95 12/23/16 03:56 98 21 12/23/16 00:15 98.5 98 17 98/42 98 12/22/16 21:00 98.0 104 17 104/54 97 12/22/16 16:00 99.0 98 18 118/56 99 12/22/16 14:30 98.7 92 18 102/56 100 Room Air 12/22/16 14:15 91 18 105/58 100 Room Air 12/22/16 14:00 93 18 100/50 100 Room Air 12/22/16 13:30 91 18 98/53 100 Room Air 12/22/16 13:15 97.6 83 18 94/50 100 Room Air 12/22/16 13:00 91 18 100/52 100 Room Air 12/22/16 12:50 80 16 91/54 96 Room Air 12/22/16 12:45 88 16 82/50 98 Room Air 12/22/16 12:30 98 16 90/68 97 Room Air 12/22/16 12:15 82 16 104/71 98 Room Air 12/22/16 12:03 97.3 82 16 100/56 99 Simple Mask 6 I/O 12/22/16 12/22/16 12/22/16 12/23/16 12/23/16 12/23/16 06:59 14:59 22:59 06:59 14:59 22:59 Intake Total 0 ml 2850 ml 240 ml 120 ml Output Total 550 ml 1100 ml 310 ml 500 ml Balance -550 ml 1750 ml -70 ml -380 ml Intake Oral 0 ml 0 ml 240 ml 120 ml IV Total 850 ml Other 2000 ml Output Urine Total 550 ml 250 ml 300 ml 500 ml Drainage Total 50 ml 10 ml 0 ml Estimated Blood Loss 800 ml # Voids 0 # Bowel Movements 0 0 0 0 Result Diagram: 12/23/1643212/23/16432 Imaging Last 24 hours Impressions Hip X-Ray 12/21/162052 Signed Impressions: Service Date/Time: Wednesday, December 21, 2016 21:09 - CONCLUSION: Acute fracture associated with the intramedullary component of the hip prosthesis as detailed above. Wenceslao Nolasco Jr., MD Femur X-Ray 12/21/162052 Signed Impressions: Service Date/Time: Wednesday, December 21, 2016 21:09 - CONCLUSION: Acute fracture associated with the intramedullary component of the prosthesis as detailed above. Wencselao Nolasco Jr., MD Chest X-Ray 12/21/162052 Signed Impressions: Service Date/Time: Wednesday, December 21, 2016 21:07 - CONCLUSION: No acute disease. Wenceslao Nolasco Jr., MD Objective Remarks Right lower extremity: Clean dry dressings intact. Drain in place. Knee immobilizer in position. Distally neurovascularly intact with strong dorsiflexion and plantar flexion of foot Assessment & Plan Assessment and Plan Right Periprosthetic Proximal Femur Fx with revision hemiarthroplasty POD 1 Therapy for toe-touch weightbearing. We will plan on progressing to 50% weightbearing in 2 weeks Lovenox then convert to Xarelto after discharge Rehabilitation placement Incentive spirometry, SCDs and GE rivera Follow-up appointment with Dr. Kaba or PA in 2 weeks Samson Rouse Jr. Dec 23, 2016 09:52
[2016-12-23] MEDS: VANCOMYCIN INJ 1,000 MG in SODIUM CHLOR 0.9% 250 ML INJ 250 ML IV SCH (11:19)
--- NOTE | 2016-12-23 13:54 | HHI.PR ---
Subjective Remarks Sleepy. Says pain is controlled by meds. No chest pain or sob. Feels tired. No n /v/d/c. No fever or chills. No cough. Poor historian. Objective Vitals Vital Signs Date Time Temp Pulse Resp B/P Pulse Ox O2 Delivery O2 Flow Rate FiO2 12/23/16 11:35 99.8 99 18 96/52 96 12/23/16 08:58 96 21 12/23/16 07:38 98.0 103 18 100/52 96 12/23/16 04:55 99.1 101 18 93/49 95 12/23/16 03:56 98 21 12/23/16 00:15 98.5 98 17 98/42 98 12/22/16 21:00 98.0 104 17 104/54 97 12/22/16 16:00 99.0 98 18 118/56 99 12/22/16 14:30 98.7 92 18 102/56 100 Room Air 12/22/16 14:15 91 18 105/58 100 Room Air 12/22/16 14:00 93 18 100/50 100 Room Air I/O 12/22/16 12/22/16 12/22/16 12/23/16 12/23/16 12/23/16 07:00 15:00 23:00 07:00 15:00 23:00 Intake Total 0 ml 2850 ml 240 ml 120 ml Output Total 550 ml 1100 ml 310 ml 500 ml 10 ml Balance -550 ml 1750 ml -70 ml -380 ml -10 ml Intake Oral 0 ml 0 ml 240 ml 120 ml IV Total 850 ml Other 2000 ml Output Urine Total 550 ml 250 ml 300 ml 500 ml Drainage Total 50 ml 10 ml 0 ml 10 ml Estimated Blood Loss 800 ml # Voids 0 # Bowel Movements 0 0 0 0 Result Diagram: 12/23/16 0433 12/23/16 0433 Imaging Last Impressions Hip and Pelvis X-Ray 12/22/16 0000 Signed Impressions: Service Date/Time: Thursday, December 22, 2016 12:24 - CONCLUSION: Postoperative appearance of right hip prosthesis. Nehemias Powers MD Hip X-Ray 12/22/16 0000 Signed Impressions: Service Date/Time: Thursday, December 22, 2016 00:00 - CONCLUSION: Successful placement of a right hip prosthesis with a long femoral stem. Jack Badillo MD Femur X-Ray 12/21/162052 Signed Impressions: Service Date/Time: Wednesday, December 21, 2016 21:09 - CONCLUSION: Acute fracture associated with the intramedullary component of the prosthesis as detailed above. Wenceslao Nolasco Jr., MD Chest X-Ray 12/21/162052 Signed Impressions: Service Date/Time: Wednesday, December 21, 2016 21:07 - CONCLUSION: No acute disease. Wenceslao Nolasco Jr., MD Objective Remarks GENERAL:Thin male, pleasantly confused, poor historian, appears in NAD. CARDIOVASCULAR: Regular rate and rhythm without murmurs, gallops, or rubs. RESPIRATORY: Breath sounds equal bilaterally. No accessory muscle use. GASTROINTESTINAL: Abdomen soft, non-tender, nondistended. MUSCULOSKELETAL: No cyanosis, or edema. BACK: Nontender without obvious deformity. No CVA tenderness. NEURO: AAO X 1 ( full name only.) Sensation and motor grossly intact. CN grossly intact. A/P Problem List: (1) Closed fracture of right hip requiring operative repair ICD Code: S72.001A Status: Acute (2) Dementia ICD Code: F03.90 Status: Acute Assessment and Plan Right hip fracture associated with intramedullary component of prosthesis -Status post fall unwitnessed fall. -Patient s/p ORIF 12/22 by orthopedics. -EKG and chest x-ray reviewed. -Due to severe dementia and patient being opioid JAMIE cabrera Dilaudid and give morphine , transition to oral medication. Anemia post surgical drop in H/H 7.2/20. Type and screen. Transfuse 2 U PRBC. Premedicate. Monitor H/H and transfuse as need. Leukocytosis -May be reactive due to injury. -Chest x-ray negative and no fevers. No skin rash noted. Will get an urinalysis. -Continue to monitor. -If UA is positive will treat empirically for UTI pending urine cultures. Severe dementia -This seems to be patient's baseline. -Will continue to monitor patient clinically. DVT prophylaxisto start postoperatively. Discharge Planning Patient is s/p surgery. Now with anemia postsurgical, receiving blood transfusion. Patient will need SNF placement. Problem Qualifiers (1) Closed fracture of right hip requiring operative repair: Qualified Code: S72.001A - Closed fracture of right hip requiring operative repair, initial encounter (2) Dementia: Qualified Code: F03.90 - Dementia without behavioral disturbance, unspecified dementia type Sweta William MD Dec 23, 2016 13:54
[2016-12-23 15:27] LABS: REVIEW FLAG FINAL
[2016-12-23 15:30] LABS: HEMATOCRIT 20.7 % (39.0-51.0)
[2016-12-23] MEDS ORDERED: ACETAMINOPHEN 325 MG TAB PO PRN (16:00)
[2016-12-23] MEDS ORDERED: SODIUM CHLOR 0.9% 250 ML INJ 250 ML IV ONE (16:00)
[2016-12-23] MEDS ORDERED: FUROSEMIDE 20 MG/2 ML VIAL IV ONE (16:15)
[2016-12-23] MEDS: DOCUSATE SODIUM 100 MG CAP PO SCH (19:49)
[2016-12-23] MEDS ORDERED: ACETAMINOPHEN 325 MG TAB PO ONE (21:15)
[2016-12-24] VITALS (8 sets, daily range): BP systolic 90–121; BP diastolic 47–57; PULSE 83–92; RESP 16–19; TEMP 97.5–100.4; O2SAT 96–100
[2016-12-24] MEDS: ENOXAPARIN SODIUM 30 MG/0.3 ML SYRINGE SQ SCH
[2016-12-24] MEDS: ACETAMINOPHEN/HYDROcodone 325 MG/10 MG TAB PO PRN ×4 (05:37→21:58)
[2016-12-24 07:09] LABS: AUTOMATED NEUTROPHIL # 11.5 TH/MM3 (1.8-7.7); BASOPHIL # 0.1 TH/MM3 (0-0.2); BASOPHIL % 0.5 % (0.0-2.0); EOSINOPHIL % 0.2 % (0.0-4.0); HEMATOCRIT 25.8 % (39.0-51.0); HEMO FLAGS DIFF FINAL; LYMPHOCYTE # 1.6 TH/MM3 (1.0-4.8); MEAN CELL VOLUME 84.7 FL (80.0-100.0); MEAN CORPUSCULAR HEMOGLOBIN 29.5 PG (27.0-34.0); MEAN CORPUSCULAR HGB CONC 34.8 % (32.0-36.0); NEUT % 81.3 % (16.0-70.0); PLATELET COUNT 128 TH/MM3 (150-450); RED BLOOD COUNT 3.05 MIL/MM3 (4.50-5.90); RED CELL DISTRIBUTION WIDTH 14.7 % (11.6-17.2); WHITE BLOOD COUNT 14.1 TH/MM3 (4.0-11.0)
[2016-12-24 07:35] LABS: BICARBONATE 28.8 MEQ/L (21.0-32.0); POTASSIUM 3.4 MEQ/L (3.5-5.1)
--- NOTE | 2016-12-24 07:44 | PD.ORT.PN ---
Subjective Subjective Remarks Pain controlled. Less confusion today Objective Vitals Vital Signs Date Time Temp Pulse Resp B/P Pulse Ox O2 Delivery O2 Flow Rate FiO2 12/24/16 04:14 99.4 92 16 112/50 98 12/24/16 02:00 99.3 92 18 96/57 97 12/24/16 01:40 99.7 90 19 100/51 98 12/24/16 00:25 98.0 88 16 96/52 98 12/23/16 21:20 98.9 86 20 94/53 98 12/23/16 20:44 100.0 92 18 87/66 96 12/23/16 19:00 100.0 92 18 87/56 96 12/23/16 18:40 97.3 96 18 101/54 98 12/23/16 18:14 98.5 99 18 91/56 92 12/23/16 16:00 96.0 94 22 91/51 96 12/23/16 11:35 99.8 99 18 96/52 96 12/23/16 08:58 96 21 I/O 12/23/16 12/23/16 12/23/16 12/24/16 12/24/16 12/24/16 07:00 15:00 23:00 07:00 15:00 23:00 Intake Total 120 ml 770 ml 480 ml 120 ml Output Total 500 ml 10 ml 330 ml 40 ml Balance -380 ml 760 ml 150 ml 80 ml Intake Oral 120 ml 720 ml 480 ml 120 ml IV Total 50 ml Output Urine Total 500 ml 300 ml Drainage Total 0 ml 10 ml 30 ml 40 ml # Voids 0 1 1 # Bowel Movements 0 0 1 0 Result Diagram: 12/24/16 0640 12/24/16 0640 Imaging Last 24 hours Impressions Hip X-Ray 12/21/162052 Signed Impressions: Service Date/Time: Wednesday, December 21, 2016 21:09 - CONCLUSION: Acute fracture associated with the intramedullary component of the hip prosthesis as detailed above. Wenceslao Nolasco Jr., MD Femur X-Ray 12/21/162052 Signed Impressions: Service Date/Time: Wednesday, December 21, 2016 21:09 - CONCLUSION: Acute fracture associated with the intramedullary component of the prosthesis as detailed above. Wenceslao Nolasco Jr., MD Chest X-Ray 5/30/17 2053 Signed Impressions: Service Date/Time: Wednesday, December 21, 2016 21:07 - CONCLUSION: No acute disease. Wenceslao Nolasco Jr., MD Objective Remarks Right lower extremity: Clean dry dressings intact. Drain in place. Knee immobilizer in position. Distally neurovascularly intact with strong dorsiflexion and plantar flexion of foot Assessment & Plan Assessment and Plan Right Periprosthetic Proximal Femur Fx with revision hemiarthroplasty POD 2 Therapy for toe-touch weightbearing. We will plan on progressing to 50% weightbearing in 2 weeks Lovenox then convert to Xarelto after discharge Rehabilitation placement when available Incentive spirometry, SCDs and GE rivera Follow-up appointment with Dr. Kaba or PA in 2 weeks Samson Rouse Jr. Dec 24, 2016 07:44
[2016-12-24] MEDS: SODIUM CHLORIDE 0.9% FLUSH 5 ML FLUSH IVF SCH ×2 (09:00→21:17)
[2016-12-24] MEDS: DOCUSATE SODIUM 100 MG CAP PO SCH ×2 (09:06→21:17)
--- NOTE | 2016-12-24 09:40 | HHI.PR ---
Subjective Remarks Patient is more awake and alert today. Oriented x4. He is in the chair, PT at bedside, says she is tolerating PT. Says he wants to go to rehab if indicated. Hgb better after transfusion. Patient denies any chest pain , sob. n/v/d/c . No fever or chills. Pain is controlled by meds. Objective Vitals Vital Signs Date Time Temp Pulse Resp B/P Pulse Ox O2 Delivery O2 Flow Rate FiO2 12/24/16 04:14 99.4 92 16 112/50 98 12/24/16 02:00 99.3 92 18 96/57 97 12/24/16 01:40 99.7 90 19 100/51 98 12/24/16 00:25 98.0 88 16 96/52 98 12/23/16 21:20 98.9 86 20 94/53 98 12/23/16 20:44 100.0 92 18 87/66 96 12/23/16 19:00 100.0 92 18 87/56 96 12/23/16 18:40 97.3 96 18 101/54 98 12/23/16 18:14 98.5 99 18 91/56 92 12/23/16 16:00 96.0 94 22 91/51 96 12/23/16 11:35 99.8 99 18 96/52 96 I/O 12/23/16 12/23/16 12/23/16 12/24/16 12/24/16 12/24/16 07:00 15:00 23:00 07:00 15:00 23:00 Intake Total 120 ml 770 ml 480 ml 120 ml Output Total 500 ml 10 ml 330 ml 40 ml 8 ml Balance -380 ml 760 ml 150 ml 80 ml -8 ml Intake Oral 120 ml 720 ml 480 ml 120 ml IV Total 50 ml Output Urine Total 500 ml 300 ml Drainage Total 0 ml 10 ml 30 ml 40 ml 8 ml # Voids 0 1 1 # Bowel Movements 0 0 1 0 Result Diagram: 12/24/1640 12/24/1640 Imaging Last Impressions Hip and Pelvis X-Ray 12/22/16 0000 Signed Impressions: Service Date/Time: Thursday, December 22, 2016 12:24 - CONCLUSION: Postoperative appearance of right hip prosthesis. Nehemias Powers MD Hip X-Ray 12/22/16 0000 Signed Impressions: Service Date/Time: Thursday, December 22, 2016 00:00 - CONCLUSION: Successful placement of a right hip prosthesis with a long femoral stem. Jack Badillo MD Femur X-Ray 12/21/162052 Signed Impressions: Service Date/Time: Wednesday, December 21, 2016 21:09 - CONCLUSION: Acute fracture associated with the intramedullary component of the prosthesis as detailed above. Wenceslao Nolasco Jr., MD Chest X-Ray 12/21/162052 Signed Impressions: Service Date/Time: Wednesday, December 21, 2016 21:07 - CONCLUSION: No acute disease. Wenceslao Nolasco Jr., MD Objective Remarks GENERAL:Thin male, awake and alert, appears in NAD. CARDIOVASCULAR: Regular rate and rhythm without murmurs, gallops, or rubs. RESPIRATORY: Breath sounds equal bilaterally. No accessory muscle use. GASTROINTESTINAL: Abdomen soft, non-tender, nondistended. MUSCULOSKELETAL: No cyanosis, or edema. BACK: Nontender without obvious deformity. No CVA tenderness. NEURO: AAO X 14( full name, , location) Sensation and motor grossly intact. CN grossly intact. A/P Problem List: (1) Closed fracture of right hip requiring operative repair ICD Code: S72.001A Status: Acute (2) Dementia ICD Code: F03.90 Status: Acute Assessment and Plan Right hip fracture associated with intramedullary component of prosthesis - ( Right Periprosthetic Proximal Femur Fx with revision hemiarthroplasty ) -Status post fall unwitnessed fall. -Patient s/p ORIF 12/22 by orthopedics. -EKG and chest x-ray reviewed. -Due to severe dementia and patient being opioid rick, JAMIE Dilaudid and give morphine , transitioned to oral medication. Therapy for toe-touch weightbearing. Plan on progressing to 50% weightbearing in 2 weeks Xarelto after discharge Incentive spirometry, SCDs and GE rivera Follow-up appointment with Dr. Kaba or PA in 2 weeks Anemia post surgical drop in H/H 7.2/20. on 12/23/16. Type and screen. Transfused 2 U PRBC. Premedicated. Hgb of 9 after blood transfusion. Monitor H/ H and transfuse as need. Leukocytosis -May be reactive due to injury. -Chest x-ray negative and no fevers. No skin rash noted. Will get an urinalysis. -Continue to monitor. -If UA is positive will treat empirically for UTI pending urine cultures. Severe dementia -This seems to be patient's baseline. -Will continue to monitor patient clinically. DVT prophylaxisto start postoperatively. Discharge Planning Patient is s/p surgery. Now with anemia postsurgical, s/p blood transfusion h/h stable after transfusion. Patient needs SNF placement. Problem Qualifiers (1) Closed fracture of right hip requiring operative repair: Qualified Code: S72.001A - Closed fracture of right hip requiring operative repair, initial encounter (2) Dementia: Qualified Code: F03.90 - Dementia without behavioral disturbance, unspecified dementia type Sweta William MD Dec 24, 2016 09:40
[2016-12-24] MEDS ORDERED: FERR325T20 PO (09:45)
--- NOTE | 2016-12-24 09:46 | HHI.DS ---
Discharge Summary Admission Date December 21, 2016 at 22:19 Discharge Date: Dec 28, 2016 Admitting Diagnosis Right hip Fracture (1) Closed fracture of right hip requiring operative repair ICD Code: S72.001A Diagnosis: Principal (2) Dementia ICD Code: F03.90 Procedures Right hip fracture associated with intramedullary component of prosthesis - ( Right Periprosthetic Proximal Femur Fx with revision hemiarthroplasty ) -Status post fall unwitnessed fall. -Patient s/p ORIF 12/22 by orthopedics. Brief History - From Admission History from transfer notes from [facility]. Patient was transferred from [facility] last night for orthopedics evaluation and repair of his right hip fracture. Patient had an unwitnessed fall on December 21, 2016. It was thought to be a trip and fall at home. Apart from the above, history is quite limited because patient has baseline dementia and the notes from [facility] only mentioned that patient had a fall. No further collateral information is available at this time regarding the circumstances of his fall. Further imaging studies done at [facility] reveals obliquely oriented fracture of the proximal shaft of the right femur with minimal angulation and destruction of fracture fragments extending around the stem of the right hip hemiarthroplasty. Patient's CT imaging of the head revealed no acute abnormalities. However does have significant substance loss which is greater than expected of his age. Left sphenoid sinusitis and right mid ethmoid air cell opacification. His lab work done there reviewed. At the time of my exam, patient is quite agitated and is severely in pain. He was initially doing well in the emergency room and upon initial arrival to medical floor. However as he moved to the bed, he suffered from severe pain and subsequently he was quite agitated and screaming and yelling out trying to pull his Hernandez catheter. Upon further questioning of his medical conditions, he pretty much answered yes to all the questioning. CBC/BMP: 12/24/16 0640 12/24/16 0640 Significant Findings Laboratory Tests Test 12/21/16 12/22/16 12/23/16 12/23/16 21:35 03:50 04:33 15:14 White Blood Count 13.7 TH/MM3 17.4 TH/MM3 20.9 TH/MM3 (4.0-11.0) (4.0-11.0) (4.0-11.0) Red Blood Count 3.67 MIL/MM3 3.54 MIL/MM3 2.48 MIL/MM3 (4.50-5.90) (4.50-5.90) (4.50-5.90) Hemoglobin 10.3 GM/DL 10.1 GM/DL 7.4 GM/DL 7.2 GM/DL (13.0-17.0) (13.0-17.0) (13.0-17.0) (13.0-17.0) Hematocrit 32.2 % 31.2 % 21.4 % 20.7 % (39.0-51.0) (39.0-51.0) (39.0-51.0) (39.0-51.0) Neutrophils (%) (Auto) 86.4 % 85.8 % (16.0-70.0) (16.0-70.0) Lymphocytes (%) (Auto) 6.1 % 6.5 % (9.0-44.0) (9.0-44.0) Neutrophils # (Auto) 11.8 TH/MM3 14.9 TH/MM3 (1.8-7.7) (1.8-7.7) Lymphocytes # (Auto) 0.8 TH/MM3 (1.0-4.8) Creatinine 0.56 MG/DL 0.58 MG/DL 0.37 MG/DL (0.60-1.30) (0.60-1.30) (0.60-1.30) Calcium Level 8.0 MG/DL 7.5 MG/DL (8.5-10.1) (8.5-10.1) Aspartate Amino Transf 12 U/L (15-37) (AST/SGOT) Total Protein 6.3 GM/DL (6.4-8.2) Albumin 3.3 GM/DL (3.4-5.0) Monocytes # (Auto) 1.3 TH/MM3 (0-0.9) Random Glucose 109 MG/DL (74-106) Test 12/24/16 06:40 White Blood Count 14.1 TH/MM3 (4.0-11.0) Red Blood Count 3.05 MIL/MM3 (4.50-5.90) Hemoglobin 9.0 GM/DL (13.0-17.0) Hematocrit 25.8 % (39.0-51.0) Platelet Count 128 TH/MM3 (150-450) Neutrophils (%) (Auto) 81.3 % (16.0-70.0) Neutrophils # (Auto) 11.5 TH/MM3 (1.8-7.7) Monocytes # (Auto) 1.0 TH/MM3 (0-0.9) Potassium Level 3.4 MEQ/L (3.5-5.1) Creatinine 0.31 MG/DL (0.60-1.30) Random Glucose 109 MG/DL (74-106) Calcium Level 7.5 MG/DL (8.5-10.1) Imaging Last Impressions Hip and Pelvis X-Ray 12/22/16 0000 Signed Impressions: Service Date/Time: Thursday, December 22, 2016 12:24 - CONCLUSION: Postoperative appearance of right hip prosthesis. Nehemias Powers MD Hip X-Ray 12/22/16 Signed Impressions: Service Date/Time: Thursday, December 22, 2016 00:00 - CONCLUSION: Successful placement of a right hip prosthesis with a long femoral stem. Jack Badillo MD Femur X-Ray 12/21/162052 Signed Impressions: Service Date/Time: Wednesday, December 21, 2016 21:09 - CONCLUSION: Acute fracture associated with the intramedullary component of the prosthesis as detailed above. Wenceslao Nolasco Jr., MD Chest X-Ray 12/21/162052 Signed Impressions: Service Date/Time: Wednesday, December 21, 2016 21:07 - CONCLUSION: No acute disease. Wenceslao Nolasco Jr., MD PE at Discharge GENERAL:Thin male, pleasantly confused, poor historian, appears in NAD. CARDIOVASCULAR: Regular rate and rhythm without murmurs, gallops, or rubs. RESPIRATORY: Breath sounds equal bilaterally. No accessory muscle use. GASTROINTESTINAL: Abdomen soft, non-tender, nondistended. MUSCULOSKELETAL: No cyanosis, or edema. BACK: Nontender without obvious deformity. No CVA tenderness. NEURO: AAO X 1 ( full name only.) Sensation and motor grossly intact. CN grossly intact. Hospital Course Miss Rizzo is a pleasant 66 female (transgender ) with: Right hip fracture associated with intramedullary component of prosthesis - ( Right Periprosthetic Proximal Femur Fx with revision hemiarthroplasty ) -Status post fall unwitnessed fall. -Patient s/p ORIF 12/22 by orthopedics. -EKG and chest x-ray reviewed. -Due to severe dementia and patient being opioid rick, DC Dilaudid and give morphine , transitioned to oral medication. Therapy for toe-touch weightbearing. Plan on progressing to 50% weightbearing in 2 weeks Xarelto after discharge Incentive spirometry, SCDs and GE rivera Follow-up appointment with Dr. Willams or PA in 2 weeks Anemia post surgical drop in H/H 7.09/13. on 12/23/16. Type and screen. Transfused 2 U PRBC. Premedicated. Hgb of 9 after blood transfusion. Monitor H/ H and transfuse as need. Leukocytosis -May be reactive due to injury. -Chest x-ray negative and no fevers. No skin rash noted. Will get an urinalysis. -Continue to monitor. -If UA is positive will treat empirically for UTI pending urine cultures. Depression/anxiety . Restart home meds. Acute encephalopathy . Resolved. Patient is noted improved , seems patient doesn 't have much dementia. She was taking too many pain meds and Xanax at home, and was noted altered mental status on arrival. mental status. DC xanax and started on clonazepam per psych , also decreased respirdal dose per psych. Discussed with the patient at length who wants to have xanax. Patient seem to understand. DVT prophylaxisto start postoperatively. Discharge Planning Patient is s/p surgery.Had anemia postsurgical, s/p blood transfusion h/h stable after transfusion. Patient was also noted with acute encephalopathy 2/2 use of xanax most likely ( say states 2 mg q6 hrs ) Patient needs SNF placement. Case management following. DC to SNF in stable condition. To f/u with PCP and consultants. as need. Pt Condition on Discharge: Stable Discharge Disposition: Discharge to SNF Discharge Time: > 30 minutes Discharge Instructions DIET: Follow Instructions for: As Tolerated, No Restrictions Activities you can perform: Toe Touch Weight Bearing Activities to Avoid: Shower Follow up Referrals: Orthopedics - 01/05/17 @ [facility] with Ryan Willams MD PCP Follow-up - 3-5 Days New Medications: Calcium Carbonate-Vitamin D (Calcium 600+D 200) 600-200 Mg-Unit Tab 1 TAB PO BID Nutritional Supplement Days 30 Ref 0 TAB Cholecalciferol (Vitamin D3) 2,000 Unit Cap 2000 UNITS PO DAILY Nutritional Supplement #56 Ref 0 CAP Ergocalciferol (Ergocalciferol) 50,000 Unit Cap 33393 UNITS PO Q7D Nutritional Supplement #56 CAP Hydrocodone-Acetaminophen (Hydrocodone-Acetaminophen) 7.5-325 mg Tab 1 TAB PO Q4H PRN PAIN #60 Ref 0 TAB Rivaroxaban (Xarelto) 10 Mg Tab 10 MG PO DAILY Blood Clot Prevention #21 Ref 0 TAB Walker/Adult/Folding (Walker/Adult/Folding) 1 Mis Mis 1 EA .ROUTE DIRECTED #1 Ref 0 EA Wheelchair (Wheelchair) 1 Mis Mis 1 EA .ROUTE DIRECTED #1 Ref 0 EA Clonazepam (Klonopin) 1 Mg Tab 1 MG PO Q12HR PRN anxiety #60 TAB Clonazepam (Klonopin) 1 Mg Tab 1 MG PO HS Agitation #30 TAB Ferrous Sulfate (Ferosul) 325 Mg Tablet 325 MG PO BID@12,17 anemia #60 TAB Risperidone (Risperdal) 1 Mg Tab 2 MG PO BID Agitation #30 TAB Continued Medications: Amitriptyline (Amitriptyline) 100 Mg Tab 100 MG PO BID TAB Duloxetine DR (Cymbalta DR) 60 Mg Capdr 60 MG PO DAILY PRN Control Depression #1 Ref 0 CAP Levothyroxine (Synthroid) 75 Mcg Tab 75 MCG PO DAILY Thyroid #1 Ref 0 TAB Methylphenidate IR (Ritalin IR) 20 Mg Tab 20 MG PO QID Anxiety #1 Ref 0 TAB Mirtazapine (Remeron) 45 Mg Tab 45 MG PO HS Insomnia #1 Ref 0 TAB Timolol Opth Drops (Timolol Opth Drops) 0.5 % Soln 1 DROP EACH EYE HS Glaucoma #1 Ref 0 BOTTLE Discontinued Medications: Risperidone (Risperdal) 4 Mg Tab 4 MG PO HS Psychosis #1 Ref 0 TAB Sweta William MD Dec 24, 2016 09:46
[2016-12-24] MEDS: FERROUS SULFATE 325 MG (65 MG ELEMENTAL IRON) TAB PO SCH ×2 (12:44→18:00)
[2016-12-24] MEDS ORDERED: AMIT100T2 PO (16:23)
[2016-12-24] MEDS ORDERED: CYMB60CA PO (16:23)
[2016-12-24] MEDS ORDERED: RITA20TA PO (16:23)
[2016-12-24] MEDS ORDERED: LEVO.075 PO (16:23)
[2016-12-24] MEDS ORDERED: TIMO0.5S30 EACH EYE (16:23)
[2016-12-24] MEDS ORDERED: XANA2TAB2 PO (16:23)
[2016-12-24] MEDS ORDERED: REME45TA PO (17:59)
[2016-12-24] MEDS ORDERED: RISP4TAB41 PO (17:59)
[2016-12-25] VITALS (7 sets, daily range): BP systolic 103–122; BP diastolic 52–58; PULSE 83–90; RESP 16–18; TEMP 97.6–99.6; O2SAT 96–100
[2016-12-25] MEDS: ENOXAPARIN SODIUM 30 MG/0.3 ML SYRINGE SQ SCH (00:10)
[2016-12-25] MEDS: ACETAMINOPHEN/HYDROcodone 325 MG/10 MG TAB PO PRN ×4 (02:03→20:22)
[2016-12-25] MEDS: LEVOTHYROXINE SODIUM 75 MCG TAB PO SCH (05:46)
[2016-12-25 06:45] LABS: AUTOMATED NEUTROPHIL # 7.3 TH/MM3 (1.8-7.7); BASOPHIL # 0.1 TH/MM3 (0-0.2); BASOPHIL % 0.8 % (0.0-2.0); EOSINOPHIL # 0.1 TH/MM3 (0-0.4); HEMATOCRIT 25.7 % (39.0-51.0); HEMO FLAGS DIFF FINAL; LYMPH % 16.9 % (9.0-44.0); LYMPHOCYTE # 1.6 TH/MM3 (1.0-4.8); MEAN CELL VOLUME 86.7 FL (80.0-100.0); MEAN CORPUSCULAR HEMOGLOBIN 29.2 PG (27.0-34.0); MEAN CORPUSCULAR HGB CONC 33.7 % (32.0-36.0); NEUT % 74.3 % (16.0-70.0); PLATELET COUNT 156 TH/MM3 (150-450); RED BLOOD COUNT 2.97 MIL/MM3 (4.50-5.90); RED CELL DISTRIBUTION WIDTH 14.8 % (11.6-17.2); WHITE BLOOD COUNT 9.8 TH/MM3 (4.0-11.0)
--- NOTE | 2016-12-25 07:00 | PD.ORT.PN ---
Subjective Subjective Remarks pt ready to go to SNF today no complaints this morning Objective Vitals Vital Signs Date Time Temp Pulse Resp B/P Pulse Ox O2 Delivery O2 Flow Rate FiO2 12/25/16 04:15 99.3 84 18 105/56 96 12/25/16 00:10 99.6 87 18 103/52 98 12/24/16 20:10 100.4 92 18 121/54 99 12/24/16 16:00 98.0 91 16 107/52 100 12/24/16 12:00 97.8 88 16 90/47 96 12/24/16 08:00 97.5 83 16 97/48 97 I/O 12/24/16 12/24/16 12/24/16 12/25/16 12/25/16 12/25/16 07:00 15:00 23:00 07:00 15:00 23:00 Intake Total 120 ml 600 ml 240 ml 240 ml Output Total 40 ml 8 ml Balance 80 ml 592 ml 240 ml 240 ml Intake Oral 120 ml 600 ml 240 ml 240 ml Drainage Total 40 ml 8 ml # Voids 1 3 1 3 # Bowel Movements 0 1 1 0 Result Diagram: 12/25/16 0619 12/24/16 0640 Imaging Last 24 hours Impressions Hip X-Ray 12/21/162052 Signed Impressions: Service Date/Time: Wednesday, December 21, 2016 21:09 - CONCLUSION: Acute fracture associated with the intramedullary component of the hip prosthesis as detailed above. Wenceslao Nolasco Jr., MD Femur X-Ray 12/21/162052 Signed Impressions: Service Date/Time: Wednesday, December 21, 2016 21:09 - CONCLUSION: Acute fracture associated with the intramedullary component of the prosthesis as detailed above. Wenceslao Nolasco Jr., MD Chest X-Ray 12/21/162052 Signed Impressions: Service Date/Time: Wednesday, December 21, 2016 21:07 - CONCLUSION: No acute disease. Wenceslao Nolasco Jr., MD Objective Remarks seen by Dr. Cholo Rasmussen Right lower extremity: Clean dry dressings intact. Knee immobilizer in position. Distally neurovascularly intact with strong dorsiflexion and plantar flexion of foot Assessment & Plan Assessment and Plan Right Periprosthetic Proximal Femur Fx with revision hemiarthroplasty POD #3 Therapy for toe-touch weightbearing. We will plan on progressing to 50% weightbearing in 2 weeks Lovenox then convert to Xarelto after discharge discharge to SNF today, orthopedically stable Follow-up appointment with Dr. Kaba or PA in 2 weeks Winsome Jo Dec 25, 2016 07:00
[2016-12-25 07:02] LABS: BICARBONATE 32.2 MEQ/L (21.0-32.0); MAGNESIUM 2.3 MG/DL (1.5-2.5); POTASSIUM 3.7 MEQ/L (3.5-5.1)
[2016-12-25] MEDS: DOCUSATE SODIUM 100 MG CAP PO SCH ×2 (08:51→20:20)
[2016-12-25] MEDS: SODIUM CHLORIDE 0.9% FLUSH 5 ML FLUSH IVF SCH ×2 (08:53→20:27)
[2016-12-25] MEDS: FERROUS SULFATE 325 MG (65 MG ELEMENTAL IRON) TAB PO SCH ×2 (11:55→16:58)
[2016-12-25] MEDS ORDERED: DULoxetine HCl DR 60 MG CAP PO PRN (13:30)
[2016-12-25] MEDS ORDERED: XANA2TAB2 PO (13:32)
--- NOTE | 2016-12-25 13:35 | HHI.PR ---
Subjective Remarks Seen earlier today. Pain is controlled by meds. She is in bed. Denies any chest pain or sob. No n/v/d/c. Feels improving. No fever or chills. Objective Vitals Vital Signs Date Time Temp Pulse Resp B/P Pulse Ox O2 Delivery O2 Flow Rate FiO2 12/25/16 12:00 97.6 90 18 122/57 100 12/25/16 08:50 83 12/25/16 08:00 98.4 83 18 108/55 98 12/25/16 04:15 99.3 84 18 105/56 96 12/25/16 00:10 99.6 87 18 103/52 98 12/24/16 20:10 100.4 92 18 121/54 99 12/24/16 16:00 98.0 91 16 107/52 100 I/O 12/24/16 12/24/16 12/24/16 12/25/16 12/25/16 12/25/16 07:00 15:00 23:00 07:00 15:00 23:00 Intake Total 120 ml 600 ml 240 ml 240 ml Output Total 40 ml 8 ml Balance 80 ml 592 ml 240 ml 240 ml Intake Oral 120 ml 600 ml 240 ml 240 ml Drainage Total 40 ml 8 ml # Voids 1 3 1 3 # Bowel Movements 0 1 1 0 Result Diagram: 12/25/1661812/25/16618 Imaging Last Impressions Hip and Pelvis X-Ray 12/22/16 0000 Signed Impressions: Service Date/Time: Thursday, December 22, 2016 12:24 - CONCLUSION: Postoperative appearance of right hip prosthesis. Nehemias Powers MD Hip X-Ray 12/22/16 0000 Signed Impressions: Service Date/Time: Thursday, December 22, 2016 00:00 - CONCLUSION: Successful placement of a right hip prosthesis with a long femoral stem. Jack Badillo MD Femur X-Ray 12/21/162052 Signed Impressions: Service Date/Time: Wednesday, December 21, 2016 21:09 - CONCLUSION: Acute fracture associated with the intramedullary component of the prosthesis as detailed above. Wenceslao Nolasco Jr., MD Chest X-Ray 12/21/162052 Signed Impressions: Service Date/Time: Wednesday, December 21, 2016 21:07 - CONCLUSION: No acute disease. Wenceslao Nolasco Jr., MD Objective Remarks GENERAL:Thin male, awake and alert, appears in NAD. CARDIOVASCULAR: Regular rate and rhythm without murmurs, gallops, or rubs. RESPIRATORY: Breath sounds equal bilaterally. No accessory muscle use. GASTROINTESTINAL: Abdomen soft, non-tender, nondistended. MUSCULOSKELETAL: No cyanosis, or edema. BACK: Nontender without obvious deformity. No CVA tenderness. NEURO: AAO X 14( full name, , location) Sensation and motor grossly intact. CN grossly intact. Procedures Right hip fracture associated with intramedullary component of prosthesis - ( Right Periprosthetic Proximal Femur Fx with revision hemiarthroplasty ) -Status post fall unwitnessed fall. -Patient s/p ORIF 12/22 by orthopedics. A/P Problem List: (1) Closed fracture of right hip requiring operative repair ICD Code: S72.001A Status: Acute (2) Dementia ICD Code: F03.90 Status: Acute Assessment and Plan Right hip fracture associated with intramedullary component of prosthesis - ( Right Periprosthetic Proximal Femur Fx with revision hemiarthroplasty ) -Status post fall unwitnessed fall. -Patient s/p ORIF 12/22 by orthopedics. -EKG and chest x-ray reviewed. -Due to severe dementia and patient being opioid rick, DC Dilaudid and give morphine , transitioned to oral medication. Therapy for toe-touch weightbearing. Plan on progressing to 50% weightbearing in 2 weeks Xarelto after discharge Incentive spirometry, SCDs and GE rivera Follow-up appointment with Dr. Kaba or PA in 2 weeks Anemia post surgical drop in H/H 7.2/20. on 12/23/16. Type and screen. Transfused 2 U PRBC. Premedicated. Hgb of 9 after blood transfusion. Monitor H/ H and transfuse as need. Leukocytosis -May be reactive due to injury. -Chest x-ray negative and no fevers. No skin rash noted. Will get an urinalysis. -Continue to monitor. -If UA is positive will treat empirically for UTI pending urine cultures. Severe dementia -This seems to be patient's baseline. -Will continue to monitor patient clinically. DVT prophylaxisto start postoperatively. Discharge Planning Patient is s/p surgery.Had anemia postsurgical, s/p blood transfusion h/h stable after transfusion. Patient needs SNF placement. Case management following. DC tomorrow if arrangements done Discussed with the patient, nurse, case management Problem Qualifiers (1) Closed fracture of right hip requiring operative repair: Qualified Code: S72.001A - Closed fracture of right hip requiring operative repair, initial encounter (2) Dementia: Qualified Code: F03.90 - Dementia without behavioral disturbance, unspecified dementia type Sweta William MD Dec 25, 2016 13:35
[2016-12-25] MEDS: ALPRAZolam 1 MG TAB PO PRN (16:03)
[2016-12-25] MEDS: METHYLPHENIDATE HCL 10 MG TAB PO SCH ×2 (16:59→20:20)
[2016-12-25] MEDS: AMITRIPTYLINE HCL 100 MG TAB PO SCH (20:21)
[2016-12-25] MEDS: risperiDONE 1 MG TAB PO SCH (20:21)
[2016-12-25] MEDS: MIRTAZAPINE 15 MG TAB PO SCH (20:22)
[2016-12-26 00:10] VITALS: BP 104/64; PULSE 102; RESP 16; TEMP 97.8; O2SAT 98
[2016-12-26] MEDS: ENOXAPARIN SODIUM 30 MG/0.3 ML SYRINGE SQ SCH ×2 (01:24→23:15)
[2016-12-26] MEDS: ACETAMINOPHEN/HYDROcodone 325 MG/10 MG TAB PO PRN ×3 (01:27→23:15)
[2016-12-26] MEDS: LEVOTHYROXINE SODIUM 75 MCG TAB PO SCH (06:31)
[2016-12-26 08:00] VITALS: BP 102/52; PULSE 97; RESP 18; TEMP 98.1; O2SAT 98
--- NOTE | 2016-12-26 08:10 | PD.ORT.PN ---
Subjective Subjective Remarks pt ready to go to SNF today- auth was not available yesterday no complaints this morning Objective Vitals Vital Signs Date Time Temp Pulse Resp B/P Pulse Ox O2 Delivery O2 Flow Rate FiO2 12/26/16 00:10 97.8 102 16 104/64 98 12/25/16 21:22 18 12/25/16 20:35 99.4 84 16 104/53 96 12/25/16 16:00 97.9 87 18 110/58 99 12/25/16 12:00 97.6 90 18 122/57 100 12/25/16 08:50 83 I/O 12/25/16 12/25/16 12/25/16 12/26/16 12/26/16 12/26/16 07:00 15:00 23:00 07:00 15:00 23:00 Intake Total 240 ml 960 ml 240 ml 240 ml Balance 240 ml 960 ml 240 ml 240 ml Intake Oral 240 ml 960 ml 240 ml 240 ml # Voids 3 3 1 2 # Bowel Movements 0 1 0 0 Result Diagram: 12/25/16 0619 12/25/16618 Imaging Last 24 hours Impressions Hip X-Ray 12/21/162052 Signed Impressions: Service Date/Time: Wednesday, December 21, 2016 21:09 - CONCLUSION: Acute fracture associated with the intramedullary component of the hip prosthesis as detailed above. Wenceslao Nolasco Jr., MD Femur X-Ray 12/21/162052 Signed Impressions: Service Date/Time: Wednesday, December 21, 2016 21:09 - CONCLUSION: Acute fracture associated with the intramedullary component of the prosthesis as detailed above. Wenceslao Nolasco Jr., MD Chest X-Ray 12/21/162052 Signed Impressions: Service Date/Time: Wednesday, December 21, 2016 21:07 - CONCLUSION: No acute disease. Wenceslao Nolasco Jr., MD Objective Remarks seen by Dr. Cholo Rasmussen Right lower extremity: Clean dry dressings intact. Knee immobilizer in position. Distally neurovascularly intact with strong dorsiflexion and plantar flexion of foot Assessment & Plan Assessment and Plan Right Periprosthetic Proximal Femur Fx with revision hemiarthroplasty POD #4 Therapy for toe-touch weightbearing. We will plan on progressing to 50% weightbearing in 2 weeks Lovenox then convert to Xarelto after discharge discharge to SNF today if authorization available, orthopedically stable Follow-up appointment with Dr. Kaba or PA in 2 weeks Winsome Jo Dec 26, 2016 08:10
[2016-12-26] MEDS: METHYLPHENIDATE HCL 10 MG TAB PO SCH ×4 (08:21→20:39)
[2016-12-26] MEDS: ALPRAZolam 1 MG TAB PO PRN (08:21)
[2016-12-26] MEDS: SODIUM CHLORIDE 0.9% FLUSH 5 ML FLUSH IVF SCH ×2 (08:21→20:39)
[2016-12-26] MEDS: AMITRIPTYLINE HCL 100 MG TAB PO SCH ×2 (08:22→20:38)
[2016-12-26] MEDS: DOCUSATE SODIUM 100 MG CAP PO SCH ×2 (08:22→20:38)
--- NOTE | 2016-12-26 09:20 | HHI.PR ---
Subjective Remarks In the chair. Says pain is fairly controlled by meds. No n/v/d/c. Pain is controlled by meds. Objective Vitals Vital Signs Date Time Temp Pulse Resp B/P Pulse Ox O2 Delivery O2 Flow Rate FiO2 12/26/16 08:00 98.1 97 18 102/52 98 12/26/16 00:10 97.8 102 16 104/64 98 12/25/16 21:22 18 12/25/16 20:35 99.4 84 16 104/53 96 12/25/16 16:00 97.9 87 18 110/58 99 12/25/16 12:00 97.6 90 18 122/57 100 I/O 12/25/16 12/25/16 12/25/16 12/26/16 12/26/16 12/26/16 07:00 15:00 23:00 07:00 15:00 23:00 Intake Total 240 ml 960 ml 240 ml 240 ml Balance 240 ml 960 ml 240 ml 240 ml Intake Oral 240 ml 960 ml 240 ml 240 ml # Voids 3 3 1 2 # Bowel Movements 0 1 0 0 Result Diagram: 12/25/1619 12/25/1619 Imaging Last Impressions Hip and Pelvis X-Ray 12/22/16 0000 Signed Impressions: Service Date/Time: Thursday, December 22, 2016 12:24 - CONCLUSION: Postoperative appearance of right hip prosthesis. Nehemias Powers MD Hip X-Ray 12/22/16 0000 Signed Impressions: Service Date/Time: Thursday, December 22, 2016 00:00 - CONCLUSION: Successful placement of a right hip prosthesis with a long femoral stem. Jack Badillo MD Femur X-Ray 12/21/162052 Signed Impressions: Service Date/Time: Wednesday, December 21, 2016 21:09 - CONCLUSION: Acute fracture associated with the intramedullary component of the prosthesis as detailed above. Wenceslao Nolasco Jr., MD Chest X-Ray 12/21/162052 Signed Impressions: Service Date/Time: Wednesday, December 21, 2016 21:07 - CONCLUSION: No acute disease. Wenceslao Nolasco Jr., MD Objective Remarks GENERAL:Thin male, awake and alert, appears in NAD. CARDIOVASCULAR: Regular rate and rhythm without murmurs, gallops, or rubs. RESPIRATORY: Breath sounds equal bilaterally. No accessory muscle use. GASTROINTESTINAL: Abdomen soft, non-tender, nondistended. MUSCULOSKELETAL: No cyanosis, or edema. BACK: Nontender without obvious deformity. No CVA tenderness. NEURO: AAO X 14( full name, , location) Sensation and motor grossly intact. CN grossly intact. Procedures Right hip fracture associated with intramedullary component of prosthesis - ( Right Periprosthetic Proximal Femur Fx with revision hemiarthroplasty ) -Status post fall unwitnessed fall. -Patient s/p ORIF 12/22 by orthopedics. A/P Problem List: (1) Closed fracture of right hip requiring operative repair ICD Code: S72.001A Status: Acute (2) Dementia ICD Code: F03.90 Status: Acute Assessment and Plan Miss Rizzo is a pleasant 66 female (transgender ) with: Right hip fracture associated with intramedullary component of prosthesis - ( Right Periprosthetic Proximal Femur Fx with revision hemiarthroplasty ) -Status post fall unwitnessed fall. -Patient s/p ORIF 12/22 by orthopedics. -EKG and chest x-ray reviewed. -Due to severe dementia and patient being opioid rick, DC Dilaudid and give morphine , transitioned to oral medication. Therapy for toe-touch weightbearing. Plan on progressing to 50% weightbearing in 2 weeks Xarelto after discharge Incentive spirometry, SCDs and GE rivera Follow-up appointment with Dr. Kaba or PA in 2 weeks Anemia post surgical drop in H/H 7.2/20. on 12/23/16. Type and screen. Transfused 2 U PRBC. Premedicated. Hgb of 9 after blood transfusion. Monitor H/ H and transfuse as need. Leukocytosis -May be reactive due to injury. -Chest x-ray negative and no fevers. No skin rash noted. Will get an urinalysis. -Continue to monitor. -If UA is positive will treat empirically for UTI pending urine cultures. Dementia -This seems to be patient's baseline. -Will continue to monitor patient clinically. Anxiety/ depression DVT prophylaxisto start postoperatively. Discharge Planning Patient is s/p surgery.Had anemia postsurgical, s/p blood transfusion h/h stable after transfusion. Patient needs SNF placement. Case management following. DC to SNF when arrangements done Discussed with the patient, nurse, case management Problem Qualifiers (1) Closed fracture of right hip requiring operative repair: Qualified Code: S72.001A - Closed fracture of right hip requiring operative repair, initial encounter (2) Dementia: Qualified Code: F03.90 - Dementia without behavioral disturbance, unspecified dementia type Sweta William MD Dec 26, 2016 09:20
[2016-12-26] MEDS ORDERED: ALPR0.5T3 PO (09:41)
[2016-12-26] MEDS: FERROUS SULFATE 325 MG (65 MG ELEMENTAL IRON) TAB PO SCH ×2 (11:48→17:10)
[2016-12-26 11:57] VITALS: BP 94/56; PULSE 101; RESP 18; TEMP 98.7; O2SAT 98
[2016-12-26] MEDS: ALPRAZolam 0.5 MG TAB PO PRN ×2 (13:39→21:26)
[2016-12-26 16:14] VITALS: BP 94/48; PULSE 86; RESP 18; TEMP 98.1; O2SAT 98
[2016-12-26 20:36] VITALS: BP 104/58; PULSE 88; RESP 18; TEMP 100.7; O2SAT 99
[2016-12-26] MEDS: MIRTAZAPINE 15 MG TAB PO SCH (20:38)
[2016-12-26] MEDS: risperiDONE 1 MG TAB PO SCH (20:38)
[2016-12-26 23:15] VITALS: BP 104/54
[2016-12-27 00:50] VITALS: BP 93/52; PULSE 90; RESP 16; TEMP 97.7; O2SAT 98
[2016-12-27 03:15] VITALS: BP 108/69; PULSE 81; RESP 16; TEMP 98.3; O2SAT 98
[2016-12-27] MEDS: LEVOTHYROXINE SODIUM 75 MCG TAB PO SCH (06:00)
--- NOTE | 2016-12-27 06:32 | PD.ORT.PN ---
Subjective Subjective Remarks Pain controlled. Less confusion today Objective Vitals Vital Signs Date Time Temp Pulse Resp B/P Pulse Ox O2 Delivery O2 Flow Rate FiO2 12/27/16 03:15 98.3 81 16 108/69 98 12/27/16 00:50 97.7 90 16 93/52 98 12/26/16 23:15 104/54 12/26/16 20:36 100.7 88 18 104/58 99 12/26/16 16:14 98.1 86 18 94/48 98 12/26/16 11:57 98.7 101 18 94/56 98 12/26/16 08:00 98.1 97 18 102/52 98 I/O 12/26/16 12/26/16 12/26/16 12/27/16 12/27/16 12/27/16 07:00 15:00 23:00 07:00 15:00 23:00 Intake Total 240 ml 720 ml 120 ml Balance 240 ml 720 ml 120 ml Intake Oral 240 ml 720 ml 120 ml # Voids 2 1 2 # Bowel Movements 0 0 1 Result Diagram: 12/25/1661812/25/16618 Imaging Last 24 hours Impressions Hip X-Ray 12/21/162052 Signed Impressions: Service Date/Time: Wednesday, December 21, 2016 21:09 - CONCLUSION: Acute fracture associated with the intramedullary component of the hip prosthesis as detailed above. Wenceslao Nolasco Jr., MD Femur X-Ray 12/21/162052 Signed Impressions: Service Date/Time: Wednesday, December 21, 2016 21:09 - CONCLUSION: Acute fracture associated with the intramedullary component of the prosthesis as detailed above. Wenceslao Nolasco Jr., MD Chest X-Ray 12/21/162052 Signed Impressions: Service Date/Time: Wednesday, December 21, 2016 21:07 - CONCLUSION: No acute disease. Wencselao Nolasco Jr., MD Objective Remarks right lower extremity: Clean dry dressings intact. mild swelling Knee immobilizer in position. Distally neurovascularly intact with strong dorsiflexion and plantar flexion of foot Assessment & Plan Assessment and Plan Right Periprosthetic Proximal Femur Fx with revision hemiarthroplasty POD #5 Therapy for toe-touch weightbearing. We will plan on progressing to 50% weightbearing in 2 weeks Lovenox then convert to Xarelto after discharge discharge to SNF today Follow-up appointment with Dr. Kaba or PA in 2 weeks Samson Rouse Jr. Dec 27, 2016 06:32
[2016-12-27 07:13] VITALS: BP 104/58; PULSE 83; RESP 18; TEMP 97.3; O2SAT 98
[2016-12-27] MEDS: AMITRIPTYLINE HCL 100 MG TAB PO SCH ×2 (08:11→20:47)
[2016-12-27] MEDS: DOCUSATE SODIUM 100 MG CAP PO SCH ×2 (08:11→20:47)
[2016-12-27] MEDS: METHYLPHENIDATE HCL 10 MG TAB PO SCH ×4 (08:12→20:49)
[2016-12-27] MEDS: ACETAMINOPHEN/HYDROcodone 325 MG/10 MG TAB PO PRN ×5 (08:12→23:48)
[2016-12-27] MEDS: SODIUM CHLORIDE 0.9% FLUSH 5 ML FLUSH IVF SCH ×2 (09:00→20:50)
[2016-12-27] MEDS: ALPRAZolam 0.5 MG TAB PO PRN (09:24)
[2016-12-27 11:13] VITALS: BP 104/59; PULSE 97; RESP 18; TEMP 97.8; O2SAT 98
[2016-12-27] MEDS: FERROUS SULFATE 325 MG (65 MG ELEMENTAL IRON) TAB PO SCH ×2 (12:38→17:01)
--- NOTE | 2016-12-27 13:44 | HHI.PR ---
Subjective Remarks Seen earlier today. Patient in the chair, appears in nad. Very upset is not getting Xanax 2 mg q6 hrs. Explained to the patient mentations is improved while off Xanax for the past 3 days. Patient doesn't have any seizures. Asking to see psychiatrist. Also is telling me she is following as OP with pain management for chronic pain. Objective Vitals Vital Signs Date Time Temp Pulse Resp B/P Pulse Ox O2 Delivery O2 Flow Rate FiO2 12/27/16 07:13 97.3 83 18 104/58 98 12/27/16 03:15 98.3 81 16 108/69 98 12/27/16 00:50 97.7 90 16 93/52 98 12/26/16 23:15 104/54 12/26/16 20:36 100.7 88 18 104/58 99 12/26/16 16:14 98.1 86 18 94/48 98 I/O 12/26/16 12/26/16 12/26/16 12/27/16 12/27/16 12/27/16 06:59 14:59 22:59 06:59 14:59 22:59 Intake Total 240 ml 720 ml 120 ml 480 ml Balance 240 ml 720 ml 120 ml 480 ml Intake Oral 240 ml 720 ml 120 ml 480 ml # Voids 2 1 2 3 # Bowel Movements 0 0 1 0 Result Diagram: 12/25/1661812/25/16618 Imaging Last Impressions Hip and Pelvis X-Ray 12/22/16 0000 Signed Impressions: Service Date/Time: Thursday, December 22, 2016 12:24 - CONCLUSION: Postoperative appearance of right hip prosthesis. Nehemias Powers MD Hip X-Ray 12/22/16 0000 Signed Impressions: Service Date/Time: Thursday, December 22, 2016 00:00 - CONCLUSION: Successful placement of a right hip prosthesis with a long femoral stem. Jack Badillo MD Femur X-Ray 12/21/162052 Signed Impressions: Service Date/Time: Wednesday, December 21, 2016 21:09 - CONCLUSION: Acute fracture associated with the intramedullary component of the prosthesis as detailed above. Wenceslao Nolasco Jr., MD Chest X-Ray 12/21/162052 Signed Impressions: Service Date/Time: Wednesday, December 21, 2016 21:07 - CONCLUSION: No acute disease. Wenceslao Nolasco Jr., MD Objective Remarks GENERAL:Thin male, awake and alert, appears in NAD. CARDIOVASCULAR: Regular rate and rhythm without murmurs, gallops, or rubs. RESPIRATORY: Breath sounds equal bilaterally. No accessory muscle use. GASTROINTESTINAL: Abdomen soft, non-tender, nondistended. MUSCULOSKELETAL: No cyanosis, or edema. BACK: Nontender without obvious deformity. No CVA tenderness. NEURO: AAO X 14( full name, , location) Sensation and motor grossly intact. CN grossly intact. Procedures Right hip fracture associated with intramedullary component of prosthesis - ( Right Periprosthetic Proximal Femur Fx with revision hemiarthroplasty ) -Status post fall unwitnessed fall. -Patient s/p ORIF 12/22 by orthopedics. A/P Problem List: (1) Closed fracture of right hip requiring operative repair ICD Code: S72.001A Status: Acute (2) Dementia ICD Code: F03.90 Status: Acute Assessment and Plan Miss Rizzo is a pleasant 66 female (transgender ) with: Right hip fracture associated with intramedullary component of prosthesis - ( Right Periprosthetic Proximal Femur Fx with revision hemiarthroplasty ) -Status post fall unwitnessed fall. -Patient s/p ORIF 12/22 by orthopedics. -EKG and chest x-ray reviewed. -Due to severe dementia and patient being opioid rick, JAMIE Dilaudid and give morphine , transitioned to oral medication. Therapy for toe-touch weightbearing. Plan on progressing to 50% weightbearing in 2 weeks Xarelto after discharge Incentive spirometry, SCDs and GE rivera Follow-up appointment with Dr. Kaba or PA in 2 weeks Anemia post surgical drop in H/H 7.2/. on 12/23/16. Type and screen. Transfused 2 U PRBC. Premedicated. Hgb of 9 after blood transfusion. Monitor H/ H and transfuse as need. Leukocytosis -May be reactive due to injury. -Chest x-ray negative and no fevers. No skin rash noted. Will get an urinalysis. -Continue to monitor. -If UA is positive will treat empirically for UTI pending urine cultures. Depression/anxiety . Restart home meds. Patient is noted improved , seems patient doesn't have much dementia. She was taking too many pain meds and Xanax at home, and was noted altered mental status on arrival. Patient now is asking for Xanax 2 mg q6 hrs. Currently restarted 0.5 mg po q8hrs xanax for anxiety. Patient also wants to see a psychiatry doctor. Consult psychiatry for evaluation. DVT prophylaxisto start postoperatively. Discharge Planning Patient is s/p surgery.Had anemia postsurgical, s/p blood transfusion h/h stable after transfusion. Patient needs SNF placement. Case management following. DC to SNF when arrangements done Discussed with the patient, nurse, case management Problem Qualifiers (1) Closed fracture of right hip requiring operative repair: Qualified Code: S72.001A - Closed fracture of right hip requiring operative repair, initial encounter (2) Dementia: Qualified Code: F03.90 - Dementia without behavioral disturbance, unspecified dementia type Sweta William MD Dec 27, 2016 13:44
[2016-12-27] MEDS ORDERED: clonazePAM 1 MG TAB PO PRN (15:15)
--- NOTE | 2016-12-27 15:22 | PD.CONS ---
Provisional Diagnosis Admission Date December 21, 2016 at 22:19 [place]. Dementia with behavior disturbance History of Present Illness Service Psychiatry Consult Requested By [facility] Primary Care Physician Unknown HPI 66-year-old male with history of dementia and orthopedic injuries. Patient is very poor historian because of his dementia. Apparently the patient has recently been a management problem and when this physician examine him he was in soft restraints. Patient also has a history of some erratic administration of Ativan. This physician finds the patient to be on too much Risperdal at night and therefore divided the 4 mg and to twice a day dosing. Patient also on Xanax which has a very short half-life and therefore it was discontinued. Patient placed on Klonopin 1 mg at bedtime and Klonopin every 12 hours when necessary anxiety. Review of Systems ROS Limitations: Clinical Condition Past Family Social History Coded Allergies: No Known Allergies (Unverified , 12/21/16) Active Scripts Alprazolam 0.5 Mg Tab0.5 Mg PO Q8H PRN (ANXIETY) #10 TAB Ref 0 Prov:Sweta William MD 12/26/16 Alprazolam (Xanax)2 Mg Tab2 Mg PO QID PRN (ANXIETY) #10 TAB Ref 0 Prov:Sweta William MD 12/25/16 Ferrous Sulfate (Ferosul)325 Mg [id number] Mg PO BID@ #60 TAB Prov:Sweta William MD 12/24/16 Calcium Carbonate-Vitamin D (Calcium 600+D 200)600-200 Mg-Unit Tab1 Tab PO BID 30 Days Ref 0 Prov:Lalit Sigala 12/22/16 Cholecalciferol (Vitamin D3)2,000 Unit Cap2,000 Units PO DAILY #56 CAP Ref 0 Prov:Lalit Sigala 12/22/16 Ergocalciferol 50,000 Unit Cap50,000 Units PO Q7D #56 CAP Prov:Lalit Sigala 12/22/16 Rivaroxaban (Xarelto)10 Mg Tab10 Mg PO DAILY #21 TAB Ref 0 Prov:Lalit Sigala 12/22/16 Hydrocodone-Acetaminophen 7.5-325 mg Tab1 Tab PO Q4H PRN (PAIN) #60 TAB Ref 0 Prov:Lalit Sigala 12/22/16 Reported Medications Mirtazapine (Remeron)45 Mg Tab45 Mg PO HS #1 TAB Ref 0 12/24/16 Risperidone (Risperdal)4 Mg Tab4 Mg PO HS #1 TAB Ref 0 12/24/16 Levothyroxine (Synthroid)75 Mcg Tab75 Mcg PO DAILY #1 TAB Ref 0 12/24/16 Timolol Opth Drops 0.5 % Soln1 Drop EACH EYE HS #1 BOTTLE Ref 0 12/24/[address] (Cymbalta DR)60 Mg Capdr60 Mg PO DAILY PRN (Control Depression) # 1 CAP Ref 0 12/24/16 Amitriptyline 100 Mg [id number] Mg PO BID 12/24/16 Methylphenidate IR (Ritalin IR)20 Mg Tab20 Mg PO QID #1 TAB Ref 0 12/24/16 Discontinued Reported Medications Alprazolam (Xanax)2 Mg Tab2 Mg PO QID PRN (ANXIETY) Ref 0 12/24/16 Risperidone (Risperdal)1 Mg/Ml Sol2 Mg PO BID 02/04/11 Levothyroxine Sodium (Synthroid)75 Mcg Tab75 Mcg PO DAILY 02/04/11 Alprazolam (Xanax 2 mg)2 Mg Tab2 Mg PO QIDPRN 02/04/11 DULOXETINE HCl (Cymbalta)60 Mg Cap60 Mg PO DAILY 02/04/11 Discontinued Scripts Nystatin (Mouth-Throat) (Mycostatin Susp)500,000 U/5 Ml Susp5 Ml SWISH-SWAL QID 7 Days Prov:Al Willams MD 04/27/16 Fluconazole 200 Mg Ptr088 Mg PO DAILY #5 TAB Prov:Al Willams MD 04/27/16 Current Medications Medications (Trade) Dose Ordered Sig/Shanda Route Start Time Stop Time Status Last Admin (Morphine Inj) 2 mg Q3H PRN IV PUSH 12/22/16 09:30 (Narcan Inj) 0.4 mg UNSCH PRN IV 12/22/16 11:30 (Benadryl) 25 mg Q6H PRN PO 12/22/16 11:30 (NS Flush) 2 ml UNSCH PRN IVF 12/22/16 11:30 (NS Flush) 2 ml BID IVF 12/22/16 21:00 12/27/16 09:00 (Lovenox Inj) 30 mg Q24H SQ 12/23/16 00:00 12/26/16 23:15 (Morphine Inj) 4 mg Q3H PRN IV PUSH 12/22/16 11:30 (Beulah 10-325 Mg) 1 tab Q4H PRN PO 12/22/16 11:30 12/27/16 12:39 (Zofran Inj) 4 mg Q6H PRN IVP 12/22/16 11:30 (Colace) 100 mg BID PO 12/23/16 21:00 12/27/16 08:11 (Ferrous Sulfate) 325 mg BID@ PO 12/24/16 12:00 12/27/16 12:38 (Synthroid) 75 mcg DAILY@0600 PO 12/25/16 06:00 12/27/16 06:00 (Elavil) 100 mg BID PO 12/25/16 21:00 12/27/16 08:11 (Cymbalta Dr) 60 mg DAILY PRN PO 12/25/16 13:30 12/26/16 08:21 (Ritalin Ir) 20 mg QID PO 12/25/16 18:00 12/27/16 12:38 (Remeron) 45 mg HS PO 12/25/16 21:00 12/26/16 20:38 (risperDAL) 4 mg HS PO 12/25/16 21:00 12/26/16 20:38 (Xanax) 0.5 mg Q8HR PRN PO 12/26/16 14:00 12/27/16 09:24 Family History Patient unable to provide information. Social History Patient unable to provide information. Patient's Strengths (min. 2) Relatively young and has access to healthcare. Physical Exam Vital Signs Vital Signs Date Time Temp Pulse Resp B/P Pulse Ox O2 Delivery O2 Flow Rate FiO2 12/27/16 11:13 97.8 97 18 104/59 98 12/23/16 08:58 21 I/O 12/26/16 12/26/16 12/27/16 08:00 16:00 00:00 Intake Total 240 ml 720 ml 120 ml Balance 240 ml 720 ml 120 ml Mental Status Examination Speech: Incoherent, Other Orientation: Person Memory: Impaired (describe) Thought Process: Goal Directed, Other Thought Content: Other Hallucination Type: None Attention and Concentration: Easily Distracted Suicidal Ideation: No Previous Suicide Attempts: No Homicidal Ideation: No Previous Homicide Attempts: No Insight: Poor Judgment: Poor Affect: Good, Oppositional Affect if Inappropriate: Labile Mood: Oppositional Motor Activity: Abnormal gait-specify Assessment & Plan Problem List: (1) Dementia in other diseases classified elsewhere with behavioral disturbance ICD Code: F02.81 Assessment & Plan Estimated LOS: days 66-year-old male with dementia and behavioral issues. This physician discontinued the patient's Xanax and made Klonopin routine. This physician is unsure if the patient's antidepressant is helpful but did not change it at this time. Finally, this physician divided the patient's dose of Risperdal to 2 mg twice a day instead of 4 mg at at bedtime as the latter is quite a significant dose of medication for someone of this age. Jacques King MD Dec 27, 2016 15:22
[2016-12-27 16:05] VITALS: BP 87/56; PULSE 87; RESP 18; TEMP 97.6; O2SAT 97
[2016-12-27 20:39] VITALS: BP 100/50; PULSE 92; RESP 18; TEMP 98.5; O2SAT 97
[2016-12-27] MEDS: MIRTAZAPINE 15 MG TAB PO SCH (20:49)
[2016-12-27] MEDS ORDERED: clonazePAM 1 MG TAB PO SCH (21:00)
[2016-12-27] MEDS: ENOXAPARIN SODIUM 30 MG/0.3 ML SYRINGE SQ SCH (23:48)
[2016-12-28] VITALS: BP 119/58; PULSE 98; RESP 17; TEMP 96.9; O2SAT 99
[2016-12-28] MEDS: LEVOTHYROXINE SODIUM 75 MCG TAB PO SCH (06:04)
[2016-12-28] MEDS: ACETAMINOPHEN/HYDROcodone 325 MG/10 MG TAB PO PRN ×3 (06:04→14:01)
--- NOTE | 2016-12-28 06:48 | PD.ORT.PN ---
Subjective Subjective Remarks Pain controlled. Less confusion today Objective Vitals Vital Signs Date Time Temp Pulse Resp B/P Pulse Ox O2 Delivery O2 Flow Rate FiO2 12/28/16 00:00 96.9 98 17 119/58 99 12/27/16 20:39 98.5 92 18 100/50 97 12/27/16 16:05 97.6 87 18 87/56 97 12/27/16 11:13 97.8 97 18 104/59 98 12/27/16 07:13 97.3 83 18 104/58 98 I/O 12/27/16 12/27/16 12/27/16 12/28/16 12/28/16 12/28/16 07:00 15:00 23:00 07:00 15:00 23:00 Intake Total 480 ml 720 ml 480 ml 240 ml Balance 480 ml 720 ml 480 ml 240 ml Intake Oral 480 ml 720 ml 480 ml 240 ml # Voids 3 3 2 2 # Bowel Movements 0 0 0 0 Result Diagram: 12/25/1661812/25/16618 Imaging Last 24 hours Impressions Hip X-Ray 12/21/162052 Signed Impressions: Service Date/Time: Wednesday, December 21, 2016 21:09 - CONCLUSION: Acute fracture associated with the intramedullary component of the hip prosthesis as detailed above. Wenceslao Nolasco Jr., MD Femur X-Ray 12/21/162052 Signed Impressions: Service Date/Time: Wednesday, December 21, 2016 21:09 - CONCLUSION: Acute fracture associated with the intramedullary component of the prosthesis as detailed above. Wenceslao Nolasco Jr., MD Chest X-Ray 12/21/162052 Signed Impressions: Service Date/Time: Wednesday, December 21, 2016 21:07 - CONCLUSION: No acute disease. Wenceslao Nolasco Jr., MD Objective Remarks right lower extremity: Clean dry dressings intact. mild swelling Knee immobilizer in position. Distally neurovascularly intact with strong dorsiflexion and plantar flexion of foot Assessment & Plan Assessment and Plan Right Periprosthetic Proximal Femur Fx with revision hemiarthroplasty POD #7 Therapy for toe-touch weightbearing. We will plan on progressing to 50% weightbearing in 2 weeks Lovenox then convert to Xarelto after discharge discharge to SNF today Progress to regular adult diet Xanax to be managed by medical and psych Follow-up appointment with Dr. Kaba or PA in 2 weeks Samson Rouse Jr. Dec 28, 2016 06:48
[2016-12-28 08:00] VITALS: BP 95/49; PULSE 95; RESP 18; TEMP 98; O2SAT 96
[2016-12-28] MEDS: DOCUSATE SODIUM 100 MG CAP PO SCH (09:00)
[2016-12-28] MEDS: SODIUM CHLORIDE 0.9% FLUSH 5 ML FLUSH IVF SCH (09:00)
[2016-12-28] MEDS: METHYLPHENIDATE HCL 10 MG TAB PO SCH ×2 (09:00→12:23)
[2016-12-28] MEDS ORDERED: risperiDONE 1 MG TAB PO SCH (09:00)
[2016-12-28] MEDS: AMITRIPTYLINE HCL 100 MG TAB PO SCH (09:00)
[2016-12-28] MEDS ORDERED: CLON1 PO ×2 (10:04)
[2016-12-28] MEDS ORDERED: RISP1 PO (10:04)
[2016-12-28 12:00] VITALS: BP 102/46; PULSE 95; RESP 18; TEMP 96.2; O2SAT 96
[2016-12-28] MEDS: FERROUS SULFATE 325 MG (65 MG ELEMENTAL IRON) TAB PO SCH (12:23)
== END 2016-12-28 14:55 | DRG 466 ==
LOC: NEPC 20:25 → NEDA 22:19 → OBSVTOIN 22:19 → N06B 12-22 00:39
PROVIDERS: ADMIT Hospitalist; ATTEND Hospitalist
PROC: 0QS604Z Reposition Right Upper Femur with Internal Fixation Device, Open Approach (ICD-10-PCS; 2016-12-22)
PROC: 30243N1 Transfusion of Nonautologous Red Blood Cells into Central Vein, Percutaneous Approach (ICD-10-PCS; 2016-12-22)
PROC: 0SRR0JZ Replacement of Right Hip Joint, Femoral Surface with Synthetic Substitute, Open Approach (ICD-10-PCS; principal; 2016-12-22 09:13)
PROC: 0SPR0JZ Removal of Synthetic Substitute from Right Hip Joint, Femoral Surface, Open Approach (ICD-10-PCS; 2016-12-22 09:13)
DX: S72.001A Fracture of unspecified part of neck of right femur, initial encounter for closed fracture (principal); G93.40 Encephalopathy, unspecified; R71.0 Precipitous drop in hematocrit; T84.030A Mechanical loosening of internal right hip prosthetic joint, initial encounter; M97.01XA Periprosthetic fracture around internal prosthetic right hip joint, initial encounter; I10 Essential (primary) hypertension; R00.0 Tachycardia, unspecified; E03.9 Hypothyroidism, unspecified; D72.829 Elevated white blood cell count, unspecified; F64.9 Gender identity disorder, unspecified; F03.90 Unspecified dementia, unspecified severity, without behavioral disturbance, psychotic disturbance, mood disturbance, and anxiety; F12.90 Cannabis use, unspecified, uncomplicated; F32.9 Major depressive disorder, single episode, unspecified; F41.9 Anxiety disorder, unspecified; W19.XXXA Unspecified fall, initial encounter; Y79.2 Prosthetic and other implants, materials and accessory orthopedic devices associated with adverse incidents; Y92.009 Unspecified place in unspecified non-institutional (private) residence as the place of occurrence of the external cause; Z78.1 Physical restraint status
CPT/HCPCS: 36430; 71010; 73501; 73502; 73552; 76000; 80048; 80053; 83735; 85014; 85018; 85025; 85027; 85610; 85730; 86850; 86900; 86901; 86920; 93005; 99285; C1713; C1776; J0690; J1170; J1580; J1650; J2175; J2370; J3370; J7040; J7050; J7120; L1830; P9016